=== PATIENT | female | born 1940 | race Caucasian/White ===

== ENCOUNTER 2016-12-28 08:13 | Outpatient (CLI) | payer MEDICARE, OTHER ==
[2016-12-28 14:24] LABS: BASOPHILS % (AUTO) 0.6 %; EOSINOPHILS # (AUTO) 0.3 10^3/uL (0.0-0.7); EOSINOPHILS % (AUTO) 5.2 %; HCT - HEMATOCRIT 42.6 % (37.0-47.0); HGB - HEMOGLOBIN 14.6 g/dL (12.0-16.0); LYMPHOCYTES # (AUTO) 1.4 10^3/uL (1.5-3.5); LYMPHOCYTES % (AUTO) 24.7 %; MEAN CORPUSCULAR HEMOGLOBIN 33.8 pg (27.0-31.0); MEAN CORPUSCULAR HGB CONC 34.2 g/dL (32.0-36.0); MEAN PLATELET VOLUME 7.9 fL (7.9-10.8); MONOCYTES # (AUTO) 0.5 10^3/uL (0.0-1.0); MONOCYTES % (AUTO) 8.8 %; NEUTROPHILS # (AUTO) 3.4 10^3/uL (1.5-6.6); NEUTROPHILS % (AUTO) 60.7 %; NUCLEATED RED BLOOD CELLS AUTO 0.1 /100WBC; RED CELL DISTRIBUTION WIDTH 13.4 % (12.0-15.0); UNCORRECTED WHITE BLOOD COUNT 5.6 x10^3/uL; WHITE BLOOD COUNT 5.6 x10^3/uL (4.8-10.8)
[2016-12-28 14:41] LABS: ALBUMIN/GLOBULIN RATIO 1.3 (1.0-2.2); BUN - BLOOD UREA NITROGEN 11 mg/dL (6-20); CALCIUM 9.6 mg/dL (8.5-10.3); CARBON DIOXIDE - CO2 23 mmol/L (21-32); CHLORIDE 105 mmol/L (101-111); CHOL/HDL RATIO 3.3 (<4.4); CHOLESTEROL 263 mg/dL; GFR - MDRD 54 (>89); GLUCOSE 100 mg/dL (70-100); HDL CHOLESTEROL 80 mg/dL; POTASSIUM 4.1 mmol/L (3.5-5.0); SODIUM 137 mmol/L (135-145); TOTAL PROTEIN 7.2 g/dL (6.7-8.2); TRIGLYCERIDES 110 mg/dL; VLDL CHOLESTEROL 22 mg/dL
== END 2016-12-28 08:14 | disposition home or self-care (01) ==
LOC: LAB.R 08:13
PROVIDERS: ATTEND Internal Medicine
DX: E03.9 Hypothyroidism, unspecified (principal); I10 Essential (primary) hypertension; E78.5 Hyperlipidemia, unspecified
CPT/HCPCS: 80053; 80061; 84443; 85025

== ENCOUNTER 2017-01-09 10:27 | Outpatient (CLI) | payer MEDICARE, OTHER ==
--- NOTE | 2017-01-10 17:41 | Mammography Report ---
DIGITAL SCREENING MAMMOGRAM: 01/09/2017 CLINICAL INDICATION: A 76-year-old with family history of breast cancer, history of benign biopsy fo r screening. COMPARISON: 01/2015, 05/2013, 09/2011, 05/2010, 04/2009, 04/2008, 03/2007. TECHNIQUE: Routine CC and MLO projections were obtained of the breasts. The breasts demonstrate heterogeneously dense fibroglandular parenchyma bilaterally. Coarse and punc peña, typically benign calcifications are present. No suspicious masses, clustered microcalcificatio ns, or regions of architectural distortion are identified. IMPRESSION: BENIGN FINDINGS. RECOMMENDATION: ROUTINE ANNUAL SCREENING UNLESS OTHERWISE CLINICALLY INDICATED. BIRADS CATEGORY: 2, BENIGN FINDINGS. STANDARD QUALIFYING STATEMENTS 1. This examination was reviewed with the aid of Computed-Aided Detection (CAD). 2. A negative or benign imaging report should not delay biopsy if clinically suspicious findings are present. Consider surgical consultation if warranted. More than 5% of cancers are not identified b y imaging. 3. Dense breasts may obscure an underlying neoplasm. JOB #: [id number] EXT JOB #:[id number]
== END 2017-01-09 10:28 | disposition home or self-care (01) ==
LOC: DI 10:27
PROVIDERS: ATTEND Internal Medicine
DX: Z12.31 Encounter for screening mammogram for malignant neoplasm of breast (principal)
CPT/HCPCS: 77067

== ENCOUNTER 2018-01-22 08:08 | Outpatient (CLI) | payer MEDICARE, OTHER ==
[2018-01-22 13:01] LABS: BASOPHILS % (AUTO) 0.6 %; EOSINOPHILS # (AUTO) 0.2 10^3/uL (0.0-0.7); EOSINOPHILS % (AUTO) 4.2 %; HGB - HEMOGLOBIN 14.7 g/dL (12.0-16.0); LYMPHOCYTES # (AUTO) 1.1 10^3/uL (1.5-3.5); LYMPHOCYTES % (AUTO) 21.3 %; MEAN CORPUSCULAR HEMOGLOBIN 34.3 pg (27.0-31.0); MEAN CORPUSCULAR HGB CONC 34.6 g/dL (32.0-36.0); MEAN CORPUSCULAR VOLUME 99.2 fL (81.0-99.0); MEAN PLATELET VOLUME 8.1 fL (7.9-10.8); MONOCYTES # (AUTO) 0.5 10^3/uL (0.0-1.0); MONOCYTES % (AUTO) 10.1 %; NEUTROPHILS # (AUTO) 3.4 10^3/uL (1.5-6.6); NEUTROPHILS % (AUTO) 63.8 %; PLT - PLATELET COUNT 231 10^3/uL (130-450); RED CELL DISTRIBUTION WIDTH 13.2 % (12.0-15.0); WHITE BLOOD COUNT 5.3 x10^3/uL (4.8-10.8)
[2018-01-22 13:17] LABS: ALBUMIN 3.9 g/dL (3.2-5.5); ALBUMIN/GLOBULIN RATIO 1.4 (1.0-2.2); ALKALINE PHOSPHATASE 50 IU/L (42-121); ALT ALANINE AMINOTRANSFERASE 24 IU/L (10-60); AST ASPARTATE AMINOTRANSFERASE 23 IU/L (10-42); BUN - BLOOD UREA NITROGEN 15 mg/dL (6-20); CHOL/HDL RATIO 3.6 (<4.4); CHOLESTEROL 261 mg/dL; GFR - MDRD 53 (>89); HDL CHOLESTEROL 73 mg/dL; LDL CHOLESTEROL,CALCULATED 163 mg/dL; LDL/HDL RATIO 2.2 (<4.4); TOTAL PROTEIN 6.6 g/dL (6.7-8.2); VLDL CHOLESTEROL 25 mg/dL
[2018-01-22 13:23] LABS: CALCIUM 9.6 mg/dL (8.5-10.3); CARBON DIOXIDE - CO2 22 mmol/L (21-32); CHLORIDE 104 mmol/L (101-111); GLUCOSE 106 mg/dL (70-100); SODIUM 136 mmol/L (135-145)
== END 2018-01-22 08:09 | disposition home or self-care (01) ==
LOC: LAB.R 08:08
PROVIDERS: ATTEND Internal Medicine
DX: E03.9 Hypothyroidism, unspecified (principal); R00.2 Palpitations; E78.5 Hyperlipidemia, unspecified; I10 Essential (primary) hypertension; Z79.899 Other long term (current) drug therapy
CPT/HCPCS: 80053; 80061; 83721; 84443; 85025

== ENCOUNTER → 2018-04-02 | Outpatient (CLI) | payer MEDICARE, OTHER ==
[2018-04-02 15:32] LABS: ALT ALANINE AMINOTRANSFERASE 23 IU/L (10-60); AST ASPARTATE AMINOTRANSFERASE 23 IU/L (10-42); LDL CHOLESTEROL,DIRECT 92 mg/dL
== END ==
LOC: LAB.R 08:03
PROVIDERS: ATTEND Internal Medicine
DX: E78.5 Hyperlipidemia, unspecified (principal)
CPT/HCPCS: 83721; 84450; 84460

== ENCOUNTER 2019-02-03 08:15 | Outpatient (CLI) | payer MEDICARE, OTHER ==
[2019-02-03 08:59] LABS: BASOPHILS % (AUTO) 0.4 %; EOSINOPHILS # (AUTO) 0.3 10^3/uL (0.0-0.7); EOSINOPHILS % (AUTO) 4.5 %; HGB - HEMOGLOBIN 14.5 g/dL (12.0-16.0); LYMPHOCYTES # (AUTO) 1.3 10^3/uL (1.5-3.5); LYMPHOCYTES % (AUTO) 22.8 %; MEAN PLATELET VOLUME 9.5 fL (7.9-10.8); MONOCYTES # (AUTO) 0.5 10^3/uL (0.0-1.0); MONOCYTES % (AUTO) 8.7 %; NEUTROPHILS # (AUTO) 3.6 10^3/uL (1.5-6.6); NEUTROPHILS % (AUTO) 63.2 %; PLT - PLATELET COUNT 240 10^3/uL (130-450); RED BLOOD COUNT 4.39 10^6/uL (4.20-5.40); RED CELL DISTRIBUTION WIDTH 13.4 % (12.0-15.0); WHITE BLOOD COUNT 5.6 x10^3/uL (4.8-10.8)
[2019-02-03 09:22] LABS: ALBUMIN 3.6 g/dL (3.2-5.5); ALBUMIN/GLOBULIN RATIO 1.1 (1.0-2.2); ALKALINE PHOSPHATASE 44 IU/L (42-121); ALT ALANINE AMINOTRANSFERASE 19 IU/L (10-60); AST ASPARTATE AMINOTRANSFERASE 20 IU/L (10-42); BILIRUBIN,TOTAL 0.8 mg/dL (0.2-1.0); BUN - BLOOD UREA NITROGEN 15 mg/dL (6-20); CALCIUM 9.2 mg/dL (8.5-10.3); CARBON DIOXIDE - CO2 25 mmol/L (21-32); CHLORIDE 104 mmol/L (101-111); CHOL/HDL RATIO 3.5 (<4.4); CHOLESTEROL 266 mg/dL; CREATININE 1.1 mg/dL (0.4-1.0); GFR - MDRD 48 (>89); GLUCOSE 103 mg/dL (70-100); HDL CHOLESTEROL 75 mg/dL; LDL CHOLESTEROL,CALCULATED 169 mg/dL; LDL/HDL RATIO 2.3 (<4.4); SODIUM 139 mmol/L (135-145); TOTAL PROTEIN 6.9 g/dL (6.7-8.2); VLDL CHOLESTEROL 22 mg/dL
[2019-02-03 09:43] LABS: THYROID STIMULATING HORMONE 3.54 uIU/mL (0.34-5.60)
[2019-02-03 09:45] LABS: FREE T4 (FREE THYROXINE) 0.82 ng/dL (0.58-1.64)
== END 2019-02-03 08:16 | disposition home or self-care (01) ==
LOC: LAB 08:15
PROVIDERS: ATTEND Family Medicine
DX: I49.8 Other specified cardiac arrhythmias (principal); E03.9 Hypothyroidism, unspecified; G43.109 Migraine with aura, not intractable, without status migrainosus; M19.90 Unspecified osteoarthritis, unspecified site; D12.6 Benign neoplasm of colon, unspecified
CPT/HCPCS: 36415; 80053; 80061; 83721; 84439; 84443; 84481; 85025

== ENCOUNTER 2019-03-02 13:14 | Outpatient (CLI) | payer MEDICARE, OTHER ==
--- NOTE | 2019-03-03 08:57 | Mammography Report ---
Reason: SCREENING MAMMO Procedure Date: 03/02/2019 Accession Number: [id number] / [id number] Procedure: HA - Screening Mammo w/Tavo CPT Code: FULL RESULT: EXAM: Screening Mammo w/Tavo DATE: 03/02/2019 2:10 PM CLINICAL HISTORY: Screening encounter. Family history of breast cancer in the mother at the age of 70 and a paternal grandmother at the age of 70. History of excisional left breast biopsy with benign pathology. TECHNIQUE: (B) - Bilateral CC and MLO views were obtained. COMPARISON: 01/09/2017 through 06/19/2013. PARENCHYMAL PATTERN: (D) - The breast(s) demonstrate(s) heterogeneously dense fibroglandular parenchyma. FINDINGS: There are typically benign coarse calcifications as well as typically benign vascular calcifications. Left breast postbiopsy changes are noted. There are no suspicious masses, calcifications, or areas of distortion. IMPRESSION: Benign findings. BI-RADS category 2. RECOMMENDATION: (ANNUAL) - Recommend routine annual screening mammography. BI-RADS CATEGORY: (2) - Benign Findings. STANDARD QUALIFYING STATEMENTS: 1. This examination was not reviewed with the aid of Computer-Aided Detection (CAD). 2. A negative or benign imaging report should not preclude biopsy if clinically suspicious findings are present. 3. Dense breasts may obscure an underlying neoplasm. 4. This examination was reviewed with the aid of 3D breast imaging (tomosynthesis).
== END 2019-03-02 13:15 | disposition home or self-care (01) ==
LOC: DI 13:14
DX: Z12.31 Encounter for screening mammogram for malignant neoplasm of breast (principal); Z80.3 Family history of malignant neoplasm of breast
CPT/HCPCS: 77063; 77067

== ENCOUNTER 2019-11-18 16:40 | Outpatient (CLI) | payer MEDICARE, OTHER ==
--- NOTE | 2019-11-18 18:01 | Ultrasound Report ---
PROCEDURE: Duplex Ext Veins Right INDICATIONS: R LEG PX TECHNIQUE: Real-time imaging, as well as color and pulse Doppler interrogation, were performed of the lower extr emity deep veins from the inguinal ligament to the popliteal fossa. COMPARISON: None. FINDINGS: The deep veins are normally compressible, and free of intraluminal thrombus. Color and pu lse Doppler demonstrate normal phasic intraluminal flow. There is normal augmentation response to di stal compression maneuver. Incidentally noted occlusive thrombus is present within a tortuous superficial varicosity. IMPRESSION: 1. No deep vein thrombosis of the right lower extremity. 2. Superficial thrombosis within a varicosity. Reviewed by: Fabiola Serna MD on 11/18/2019 5:59 PM PDT Approved by: Fabiola Serna MD on 11/18/2019 5:59 PM PDT Station ID: [id number]
== END 2019-11-18 16:41 | disposition home or self-care (01) ==
LOC: DI 16:40
PROVIDERS: ATTEND Nurse Practitioner
DX: I82.811 Embolism and thrombosis of superficial veins of right lower extremity (principal)

== ENCOUNTER 2019-11-25 19:55 | Emergency (ER) | payer MEDICARE, OTHER ==
--- NOTE | 2019-11-25 21:23 | ED Physician Documentation ---
History of Present Illness - Stated complaint Stated Complaint: TACHYCARDIA - Chief complaint Chief Complaint: Cardiac - History obtained from History obtained from: Patient - History of Present Illness Timing: Yesterday Pain level max: 0 Pain level now: 0 Improved by: valsalva maneuvers Worsened by: no exacerbating factors - Additonal information Additional information: patient has long-standing h/o tachycardia, episodic without any cause found despite extensive w/u over many years. She had minimized episodes with atenolol 25mg BID, but 2 days ago, her emissions inspector changed her from atenolol to Cartia XT 120mg QD with verapamil 80mg once PRN for episodes of tachycardia. She says this change was made because she started having episodes again (once in June and again in September). She switched the medications as directed yesterday and started having episodes yesterday which initially responded to valsalva maneuver although she also took a dose of the verapamil (the resolution of the episode seemed temporally related to the valsalva maneuver). She had episode tonight which has not stopped despite trying the verapamil and valsalva maneuvers. She only c/o rapid palpitations. Denies SOB, lightheadedness, chest pain/pressure, n/v, diaphoresis She had outpatient US 1 week ago which showed RLE superficial venous thrombosis in varicosity, PMD recommended starting 81mg ASA QD which patient has been taking Review of Systems Constitutional: denies: Fever, Chills, Sweats Cardiac: reports: Palpitations. denies: Chest pain / pressure, Pedal edema, Calf pain Respiratory: reports: Reviewed and negative GI: reports: Reviewed and negative. denies: Nausea, Vomiting Neurologic: denies: Generalized weakness PD PAST MEDICAL HISTORY - Past Medical History Past Medical History: Yes Cardiovascular: Arrhythmia Respiratory: None Endocrine/Autoimmune: HyPOthyroidism GI: GERD, Colon polyps YOUTH CARE PROFESSIONAL: None : Frequency HEENT: None, Glaucoma, Other Psych: Claustrophobia Musculoskeletal: Osteoarthritis Derm: Eczema, Psoriasis, Rosacea - Past Surgical History Past Surgical History: Yes General: Colonoscopy Ortho: Hip replacement, Knee replacement /YOUTH CARE PROFESSIONAL: LEEP (Cervical surgery) HEENT: Tonsil/Adenoidectomy - Present Medications Home Medications: Ambulatory Orders Medication Instructions Recorded Confirmed Levothyroxine [Synthroid] 50 mcg PO QDAC 01/30/13 02/22/16 Cholecalciferol (Vitamin D3) 2,000 unit PO DAILY 03/26/14 02/22/16 [Vitamin D] Magnesium 250 mg PO DAILY 03/26/14 02/22/16 Ubidecarenone [Co Q-10] 100 mg PO DAILY 03/26/14 02/22/16 Progesterone [First-Progesterone 1 mg PO DAILY 05/12/14 02/22/16 Vgs 100] raNITIdine HCl [Zantac] 1 mg PO DAILY 05/12/14 02/22/16 atenoloL [Atenolol] 1 tab PO BID 05/24/14 02/22/16 Calcium Carbonate [Tums (Calcium 500 mg PO DAILY 02/21/16 02/22/16 Carbonate 500mg)] Latanoprost 0.005% Ophth Drops 40 drops EACHEYE DAILY 02/21/16 02/21/16 [Xalatan Ophth Drops] - Allergies Allergies/Adverse Reactions: Allergies Allergy/AdvReac Type Severity Reaction Status Date / Time Tetracyclines Allergy Severe TINNITIS/PH Verified 11/25/19 19:59 OTOPHOBIA/M IGRAINES ADHESIVES AdvReac Intermediate Rash Uncoded 11/25/19 19:59 - Social History Does the pt smoke?: No Smoking Status: Never smoker Does the pt drink ETOH?: No Does the pt have substance abuse?: No - Immunizations Immunizations are current?: Yes - POLST Patient has POLST: No PD ED PE NORMAL - Vitals Vital signs reviewed: Yes - General General: Alert and oriented X 3, No acute distress, Well developed/nourished - Neck Neck: Supple, no meningeal sign, Thyroid normal - Cardiac Cardiac: No murmur, No gallop, No rub - Respiratory Respiratory: No respiratory distress, Clear bilaterally - Abdomen Abdomen: Soft, Non tender - Derm Derm: Normal color, Warm and dry - Extremities Extremities: No edema - Neuro Neuro: Alert and oriented X 3 PD ED PE EXPANDED - Cardiac Cardiac: Tachy, Regular Rhythm Results - Vitals Vitals: Vital Signs - 24 hr 11/25/19 11/25/19 11/25/19 19:59 20:02 21:45 Temperature 37.1 C Heart Rate 135 H 108 H 118 H Respiratory 22 14 13 Rate Blood Pressure 151/98 H 150/84 H 148/92 H O2 Saturation 97 98 97 0711/25/19 11/25/19 22:10 22:21 23:05 Temperature Heart Rate 107 H 97 101 H Respiratory 15 17 16 Rate Blood Pressure 154/87 H 145/86 H 140/91 H O2 Saturation 96 95 96 11/25/19 11/26/19 11/26/19 23:19 00:18 01:44 Temperature Heart Rate 97 75 94 Respiratory 18 18 18 Rate Blood Pressure 137/89 H 126/78 145/88 H O2 Saturation 95 96 100 11/26/19 02:08 Temperature Heart Rate 65 Respiratory 16 Rate Blood Pressure 141/73 H O2 Saturation 98 Oxygen O2 Source Room air - EKG (time done) No standard instances Rate: Rate (enter#) (118) Rhythm: Sinus tachycardia [place]: LAD, Anterior hemiblock Intervals: Normal CT QRS: Normal Ischemia: Normal ST segments - Labs Labs: Laboratory Tests 11/25/19 11/25/19 11/25/19 22:05 22:05 22:05 WBC 8.1 RBC 4.44 Hgb 14.6 Hct 43.9 MCV 98.9 MCH 32.9 H MCHC 33.3 RDW 13.4 Plt Count 236 MPV 9.2 Neut # (Auto) 6.5 Lymph # (Auto) 0.9 L Powell # (Auto) 0.5 Eos # (Auto) 0.1 Baso # (Auto) 0.0 Absolute Nucleated RBC 0.00 Nucleated RBC % 0.0 D-Dimer 767.6 H Sodium 138 Potassium 4.0 Chloride 100 L Carbon Dioxide 25 Anion Gap 13.0 BUN 19 Creatinine 1.1 H Estimated GFR (MDRD) 48 L Glucose 128 H Calcium 9.7 Magnesium 2.3 Total Bilirubin 0.6 AST 19 ALT 20 Alkaline Phosphatase 50 Troponin I High Sens Total Protein 7.4 Albumin 4.3 Globulin 3.1 Albumin/Globulin Ratio 1.4 Lipase 48 TSH 11/25/19 11/25/19 11/26/19 22:05 22:08 00:45 WBC RBC Hgb Hct MCV MCH MCHC RDW Plt Count MPV Neut # (Auto) Lymph # (Auto) Powell # (Auto) Eos # (Auto) Baso # (Auto) Absolute Nucleated RBC Nucleated RBC % D-Dimer Sodium Potassium Chloride Carbon Dioxide Anion Gap BUN Creatinine Estimated GFR (MDRD) Glucose Calcium Magnesium Total Bilirubin AST ALT Alkaline Phosphatase Troponin I High Sens 39.2 H* 51.0 H* Total Protein Albumin Globulin Albumin/Globulin Ratio Lipase TSH 3.64 - Rads (name of study) chest xray Radiology: Prelim report reviewed, See rad report thoracic CT angio (PE study) Radiology: Prelim report reviewed, See rad report PD MEDICAL DECISION MAKING - ED course Complexity details: reviewed results, re-evaluated patient, considered differential, d/w patient ED course: elevated d-dimer, but no evidence of PE on CT chest angio. mild elevation in hsTni with 10.8 delta on 2-hour repeat. I discussed these results with Dr. Velázquez (electrical & instrumentation supervisor cardiology for patient's emissions inspector (Dr. Benitez)); agrees patient is safe and appropriate for discharge home, given that her only symptom is palpitations, the rate has been controlled with 5mg lopressor given 3 doses, no evidence of ischemia on EKG, and small delta. Patient's heart rate was 60s-70s prior to d/c after third dose of lopressor IV 5mg. I also d/w Dr. Velázquez regarding medications; patient wants to stop the cartia and resume the atenolol, which Dr. Velázquez says is appropriate and I thus instructed patient to do so starting this morning. Departure - Departure Disposition: 01 Home, Self Care Clinical Impression: Palpitations, Sinus tachycardia Condition: Good Instructions: ED Palpitations, ED Tachycardia Pat PSVT Follow-Up: Nader Beckman MD [Primary Care Provider] - Discharge Date/Time: 11/26/19 02:24
[2019-11-25] MEDS ORDERED: METOPROLOL 5 MG/5 ML VIAL IVP STA ×2 (21:55→23:08)
[2019-11-25 22:12] LABS: BASOPHILS % (AUTO) 0.1 %; EOSINOPHILS # (AUTO) 0.1 10^3/uL (0.0-0.7); EOSINOPHILS % (AUTO) 1.2 %; HGB - HEMOGLOBIN 14.6 g/dL (12.0-16.0); LYMPHOCYTES # (AUTO) 0.9 10^3/uL (1.5-3.5); LYMPHOCYTES % (AUTO) 11.6 %; MEAN CORPUSCULAR HEMOGLOBIN 32.9 pg (27.0-31.0); MEAN CORPUSCULAR HGB CONC 33.3 g/dL (32.0-36.0); MEAN CORPUSCULAR VOLUME 98.9 fL (81.0-99.0); MEAN PLATELET VOLUME 9.2 fL (7.9-10.8); MONOCYTES # (AUTO) 0.5 10^3/uL (0.0-1.0); MONOCYTES % (AUTO) 6.6 %; NEUTROPHILS # (AUTO) 6.5 10^3/uL (1.5-6.6); NEUTROPHILS % (AUTO) 80.1 %; PLT - PLATELET COUNT 236 10^3/uL (130-450); RED BLOOD COUNT 4.44 10^6/uL (4.20-5.40); RED CELL DISTRIBUTION WIDTH 13.4 % (12.0-15.0); WHITE BLOOD COUNT 8.1 x10^3/uL (4.8-10.8)
[2019-11-25 22:27] LABS: ALBUMIN 4.3 g/dL (3.2-5.5); ALBUMIN/GLOBULIN RATIO 1.4 (1.0-2.2); BILIRUBIN,TOTAL 0.6 mg/dL (0.2-1.0); CALCIUM 9.7 mg/dL (8.5-10.3); CREATININE 1.1 mg/dL (0.4-1.0); MAGNESIUM 2.3 mg/dL (1.7-2.8); TOTAL PROTEIN 7.4 g/dL (6.7-8.2)
[2019-11-25] MEDS ORDERED: IOVERSOL 320 100 ML VIAL IVP ONE ×2 (23:25→23:52)
[2019-11-26] MEDS ORDERED: METOPROLOL 5 MG/5 ML VIAL IVP STA (01:40)
[2019-11-26 02:09] VITALS: BP 141/73
--- NOTE | 2019-11-26 08:12 | CT Report ---
PROCEDURE: ANGIO CHEST W/WO INDICATIONS: palpitations, elevated d-dimer CONTRAST: IV CONTRAST: Optiray 320 ml: 80 PO CONTRAST: *NO PO CONTRAST TECHNIQUE: After the administration of intravenous contrast, 2 mm thick sections acquired from the pulmonary api rocío to the posterior costophrenic angles. 3-dimensional maximum intensity projection (MIP) coronal a nd sagittal reformats were then acquired through the thorax. For radiation dose reduction, the follow ing was used: automated exposure control, adjustment of mA and/or kV according to patient size. COMPARISON: None. FINDINGS: Image quality: Excellent. Pulmonary arteries: Pulmonary arteries are normal in size, and demonstrate no intraluminal filling d efects to suggest central pulmonary embolism. Lungs and pleura: Lungs are clear. No pleural effusions or pneumothorax. Central and peripheral ai rways are patent. Mediastinum: Heart size is normal, without pericardial effusion. No mediastinal or hilar adenopathy . Thoracic aorta is normal in caliber and enhancement. Esophagus is normal in caliber. Small hiatal hernia. Bones and chest wall: No suspicious bony lesions. Degenerative changes in thoracic spine. Ribs and thoracic spine appear intact throughout. The thyroid is normal. No axillary or supraclavicular randolph opathy. Abdomen: Visualized upper abdominal solid organs appear normal in the early arterial phase of enhanc ement. IMPRESSION: 1. No evidence for pulmonary embolism. 2. Small hiatal hernia. No significant discrepancy with the preliminary report. Reviewed by: Kris Cameron MD on 11/26/2019 8:10 AM PDT Approved by: Kris Cameron MD on 11/26/2019 8:10 AM PDT Station ID: [id number]
== END 2019-11-26 02:24 | disposition home or self-care (01) ==
LOC: ED 19:55
DX: R00.2 Palpitations (principal); R00.0 Tachycardia, unspecified
CPT/HCPCS: 36415; 71275; 80053; 83690; 83735; 84443; 84484; 85025; 85379; 93005; 96374; 96376; 99284; Q9967

== ENCOUNTER 2020-01-14 20:08 | Emergency (ER) | payer MEDICARE, OTHER ==
--- NOTE | 2020-01-14 20:25 | ED Physician Documentation ---
History of Present Illness - Stated complaint Stated Complaint: RAPID HEART RATE/FAST PULSE - Chief complaint Chief Complaint: Cardiac - History obtained from History obtained from: Patient - Additonal information Additional information: Patient is an 79-year-old female with a history of tachycardia. Patient reports that she takes 25 mg of atenolol by mouth twice daily. And also has verapamil as needed whenever she has this rapid heartbeat. 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 She reports her symptoms have resolved by the time of my evaluation and is requesting to be discharged home. I did recommend lab work and cardiac work-up however she is states that she feels fine now and wants to go home. Review of Systems Constitutional: reports: Reviewed and negative Eyes: reports: Reviewed and negative Ears: reports: Reviewed and negative Nose: reports: Reviewed and negative Throat: reports: Reviewed and negative Cardiac: reports: Palpitations Respiratory: reports: Reviewed and negative GI: reports: Reviewed and negative : reports: Reviewed and negative Skin: reports: Reviewed and negative Musculoskeletal: reports: Reviewed and negative Neurologic: reports: Reviewed and negative Psychiatric: reports: Reviewed and negative Endocrine: reports: Reviewed and negative Immunocompromised: reports: Reviewed and negative PD PAST MEDICAL HISTORY - Past Medical History Cardiovascular: Arrhythmia Respiratory: None Endocrine/Autoimmune: HyPOthyroidism GI: GERD, Colon polyps CORE DRILLER: None : Frequency HEENT: None, Glaucoma, Other Psych: Claustrophobia Musculoskeletal: Osteoarthritis Derm: Eczema, Psoriasis, Rosacea - Past Surgical History Past Surgical History: Yes General: Colonoscopy Ortho: Hip replacement, Knee replacement /CORE DRILLER: LEEP (Cervical surgery) HEENT: Tonsil/Adenoidectomy - Present Medications Home Medications: Ambulatory Orders Medication Instructions Recorded Confirmed Levothyroxine [Synthroid] 50 mcg PO QDAC 01/30/13 02/22/16 Cholecalciferol (Vitamin D3) 2,000 unit PO DAILY 03/26/14 02/22/16 [Vitamin D] Magnesium 250 mg PO DAILY 03/26/14 02/22/16 Ubidecarenone [Co Q-10] 100 mg PO DAILY 03/26/14 02/22/16 Progesterone [First-Progesterone 1 mg PO DAILY 05/12/14 02/22/16 Vgs 100] raNITIdine HCl [Zantac] 1 mg PO DAILY 05/12/14 02/22/16 atenoloL [Atenolol] 1 tab PO BID 05/24/14 02/22/16 Calcium Carbonate [Tums (Calcium 500 mg PO DAILY 02/21/16 02/22/16 Carbonate 500mg)] Latanoprost 0.005% Ophth Drops 40 drops EACHEYE DAILY 02/21/16 02/21/16 [Xalatan Ophth Drops] - Allergies Allergies/Adverse Reactions: Allergies Allergy/AdvReac Type Severity Reaction Status Date / Time Tetracyclines Allergy Severe TINNITIS/PH Verified 01/14/20 20:11 OTOPHOBIA/M IGRAINES ADHESIVES AdvReac Intermediate Rash Uncoded 01/14/20 20:11 - Social History Does the pt smoke?: No Smoking Status: Never smoker Does the pt drink ETOH?: Yes Does the pt have substance abuse?: No - Immunizations Immunizations are current?: Yes - POLST Patient has POLST: No PD ED PE NORMAL - Vitals Vital signs reviewed: Yes - General General: Alert and oriented X 3, No acute distress - HEENT HEENT: PERRL - Neck Neck: Supple, no meningeal sign - Cardiac Cardiac: RRR, No murmur, No gallop, No rub, Strong equal pulses - Respiratory Respiratory: No respiratory distress, Clear bilaterally - Abdomen Abdomen: Normal bowel sounds, Soft, Non tender, Non distended - Derm Derm: Warm and dry - Extremities Extremities: No deformity - Neuro Neuro: Alert and oriented X 3 - Psych Psych: Normal mood, Normal affect Results - Vitals Vitals: Vital Signs - 24 hr 01/14/20 01/14/20 20:11 20:41 Temperature 36.5 C Heart Rate 102 H 70 Respiratory 20 18 Rate Blood Pressure 153/87 H 145/77 H O2 Saturation 96 97 Oxygen O2 Source Room air - EKG (time done) 20:20 Rate: Other (no stemi) PD MEDICAL DECISION MAKING - ED course Complexity details: reviewed old records, reviewed results, re-evaluated patient, considered differential (atrial fibrillation), d/w patient, d/w family ED course: Patient's EKG was reviewed and compared with previous EKG there is no obvious STEMI there or malignant arrhythmia. On reexamination her heart rates in the 70s and regular with blood pressure 140/70 the patient states that she feels better now and she wants to go home I did explain to her that I recommend additional testing however she does have medical decision-making capability capacity and will be discharged home. Departure - Departure Disposition: 01 Home, Self Care Clinical Impression: Palpitations Condition: Stable Instructions: ED Palpitations Follow-Up: Erika Soria ARNP, [employer] [Primary Care Provider] - Tomorrow Comments: Please follow-up with your primary care provider tomorrow and call your bank teller machine mechanic to schedule an appointment as well. Discharge Date/Time: 01/14/20 21:34
[2020-01-14 20:42] VITALS: BP 145/77
== END 2020-01-14 21:34 | disposition home or self-care (01) ==
LOC: ED 20:08
DX: R00.2 Palpitations (principal)
CPT/HCPCS: 93005; 99283; 99284

== ENCOUNTER 2020-02-23 13:56 | Outpatient (CLI) | payer MEDICARE, OTHER | END 2020-02-23 13:57 | disposition home or self-care (01) | LOC: COV 13:56 | PROVIDERS: ATTEND Student in an Organized Health Care Education/Training Program | DX: I47.1 Supraventricular tachycardia (principal); Z20.828 Contact with and (suspected) exposure to other viral communicable diseases ==

== ENCOUNTER 2020-04-04 14:38 | Outpatient (CLI) | payer MEDICARE, OTHER ==
--- NOTE | 2020-04-04 15:39 | Ultrasound Report ---
PROCEDURE: Pelvic w/Transvaginal INDICATIONS: POSTMENOPAUSAL BLEEDING TECHNIQUE: Real-time scanning was performed of the pelvic organs, with image documentation. Additional endovagi nal scanning was necessary due to incomplete visualization of the adnexal and endometrial structures by transabdominal scanning. COMPARISON: None. FINDINGS: Transabdominal scanning: Limited scanning through the kidneys shows no hydronephrosis. No pathologi c free abdominal or pelvic fluid. Endovaginal scanning: Uterus: Uterus is normal in size at 6 x 4 x 3.5 x 5.0 cm. The endometrium measures 1.0 mm in combin ed thickness. Small cystic appearing focus is noted measuring 5 x 4 x 6 mm. There is a mid anterior intramural focus of heterogeneous echogenicity measuring 21 x 17 x 20 mm compared to 25 x 21 x 23 mm. Nabothian cysts are noted. Ovaries: The ovaries are not visualized. Adnexal regions are unremarkable. IMPRESSION: Uterine fibroid appearing minimally decrease in size compared to prior exam. Endometrial cystic focus is noted. Reviewed by: Catarina Paulino MD on 04/04/2020 3:38 PM PST Approved by: Catarina Paulino MD on 04/04/2020 3:38 PM PST Station ID: [id number]
== END 2020-04-04 14:39 | disposition home or self-care (01) ==
LOC: DI 14:38
PROVIDERS: ATTEND Obstetrics & Gynecology
DX: D25.1 Intramural leiomyoma of uterus (principal); R93.89 Abnormal findings on diagnostic imaging of other specified body structures
CPT/HCPCS: 76830; 76856

== ENCOUNTER 2020-04-21 07:42 | Outpatient (CLI) | payer MEDICARE, OTHER ==
[2020-04-21 08:07] LABS: ALBUMIN 3.7 g/dL (3.2-5.5); ALBUMIN/GLOBULIN RATIO 1.2 (1.0-2.2); ALKALINE PHOSPHATASE 53 IU/L (42-121); ALT ALANINE AMINOTRANSFERASE 18 IU/L (10-60); AST ASPARTATE AMINOTRANSFERASE 18 IU/L (10-42); BILIRUBIN,TOTAL 0.9 mg/dL (0.2-1.0); BUN - BLOOD UREA NITROGEN 15 mg/dL (6-20); CALCIUM 9.4 mg/dL (8.5-10.3); CARBON DIOXIDE - CO2 23 mmol/L (21-32); CHLORIDE 103 mmol/L (101-111); CHOL/HDL RATIO 3.2 (<4.4); CHOLESTEROL 258 mg/dL; GLUCOSE 105 mg/dL (70-100); HDL CHOLESTEROL 81 mg/dL; LDL CHOLESTEROL,CALCULATED 156 mg/dL; LDL/HDL RATIO 1.9 (<4.4); SODIUM 137 mmol/L (135-145); TOTAL PROTEIN 6.9 g/dL (6.7-8.2); VLDL CHOLESTEROL 21 mg/dL
[2020-04-21 08:23] LABS: BASOPHILS % (AUTO) 0.4 %; EOSINOPHILS # (AUTO) 0.2 10^3/uL (0.0-0.7); EOSINOPHILS % (AUTO) 3.8 %; HGB - HEMOGLOBIN 14.8 g/dL (12.0-16.0); LYMPHOCYTES # (AUTO) 1.4 10^3/uL (1.5-3.5); LYMPHOCYTES % (AUTO) 26.1 %; MEAN CORPUSCULAR HEMOGLOBIN 33.3 pg (27.0-31.0); MEAN CORPUSCULAR HGB CONC 32.7 g/dL (32.0-36.0); MEAN CORPUSCULAR VOLUME 101.8 fL (81.0-99.0); MEAN PLATELET VOLUME 9.5 fL (7.9-10.8); MONOCYTES # (AUTO) 0.5 10^3/uL (0.0-1.0); MONOCYTES % (AUTO) 9.6 %; NEUTROPHILS # (AUTO) 3.3 10^3/uL (1.5-6.6); NEUTROPHILS % (AUTO) 59.7 %; PLT - PLATELET COUNT 256 10^3/uL (130-450); RED BLOOD COUNT 4.44 10^6/uL (4.20-5.40); RED CELL DISTRIBUTION WIDTH 13.1 % (12.0-15.0); WHITE BLOOD COUNT 5.5 x10^3/uL (4.8-10.8)
== END 2020-04-21 07:43 | disposition home or self-care (01) ==
LOC: DI 07:42
PROVIDERS: ATTEND Nurse Practitioner Family
DX: I51.7 Cardiomegaly (principal); I49.8 Other specified cardiac arrhythmias; E03.9 Hypothyroidism, unspecified; R00.2 Palpitations; E78.5 Hyperlipidemia, unspecified; I11.9 Hypertensive heart disease without heart failure; Z96.659 Presence of unspecified artificial knee joint
CPT/HCPCS: 36415; 80053; 80061; 83721; 84443; 85025; 93306

== ENCOUNTER 2020-04-29 13:54 | Outpatient (CLI) | payer MEDICARE, OTHER | END 2020-04-29 13:55 | disposition home or self-care (01) | LOC: COV 13:54 | PROVIDERS: ATTEND Obstetrics & Gynecology | DX: Z01.812 Encounter for preprocedural laboratory examination (principal); N95.0 Postmenopausal bleeding; Z20.828 Contact with and (suspected) exposure to other viral communicable diseases ==

== ENCOUNTER 2020-05-12 10:51 | Outpatient (CLI) | payer MEDICARE, OTHER ==
--- NOTE | 2020-05-12 14:38 | CARDIAC PROCEDURE NOTE ---
DATE OF SERVICE: 05/12/2020 Physician: Mala Shafer MD, [facility] INDICATION: Paroxysmal supraventricular tachycardia (PSVT). CARDIAC RISK FACTORS 1. Advanced age. 2. Hypertension, 3. Family history of heart disease. 4. Elevated cholesterol. PROCEDURE: After signing informed consent, the patient underwent a modified Chapin-protocol treadmill stress test. No cardiac imaging was ordered with this test. RESTING HEART RATE: 67. PEAK HEART RATE: 117 (84% predicted maximum heart rate for age). The patient took her usual Atenolol last night, but skipped the morning Atenolol dose. RESTING BLOOD PRESSURE: 166/88. PEAK BLOOD PRESSURE: 211/96. The patient exercised for 6 minutes and 31 seconds on a modified Chapin-protocol treadmill stress test. The patient achieved a peak heart rate of 117 (84% predicted maximum heart rate for age) and 3.5 METS. The patient had moderate shortness of breath at peak, and rated her perceived exertion at 16/20 on the Enma scale. There was no chest pain. The patient had low back pain and bilateral hip pain throughout exercise. RESTING EKG: Normal sinus rhythm, short [place] Interval, RSR' in V1 and V2. EKG AT PEAK: No new ST segment or T-wave changes. There were rare PACs and PVCs during exercise, no episodes of PSVT. SUMMARY 1. Abnormal resting EKG. 2. No episodes of paroxysmal supraventricular tachycardia occurred. 3. Poor exercise tolerance. 4. No ischemic changes occurred by EKG criteria. 5. No cardiac imaging was ordered with this examination. IMPRESSION: Normal stress test, for coronary ischemia. cc: THEO Fowler Dr[address] Cardiology TD: 05/12/2020 12:45 MTDD
== END 2020-05-12 10:52 | disposition home or self-care (01) ==
LOC: DI 10:51
PROVIDERS: ATTEND Nurse Practitioner Family
DX: I25.9 Chronic ischemic heart disease, unspecified (principal); I10 Essential (primary) hypertension; E78.00 Pure hypercholesterolemia, unspecified; Z82.49 Family history of ischemic heart disease and other diseases of the circulatory system

== ENCOUNTER 2020-06-03 19:52 | Outpatient (CLI) | payer MEDICARE, OTHER | END 2020-06-03 19:53 | disposition home or self-care (01) | LOC: COV 19:52 | PROVIDERS: ATTEND Obstetrics & Gynecology | DX: Z01.812 Encounter for preprocedural laboratory examination (principal); Z20.822 Contact with and (suspected) exposure to COVID-19; N95.0 Postmenopausal bleeding ==

== ENCOUNTER 2020-06-08 09:56 | Day surgery (SDC) | payer MEDICARE, OTHER ==
[2020-06-08] MEDS ORDERED: LACTATED RINGERS 1,000 ML IV ONE ×2 (10:12→14:12)
[2020-06-08] MEDS ORDERED: ACETAMINOPHEN 1,000 MG/100 ML 100 ML IV ONE (10:14)
[2020-06-08] MEDS ORDERED: GABAPENTIN 400 MG CAPSULE ONE (10:14)
[2020-06-08] MEDS ORDERED: CELECOXIB 100 MG CAPSULE PO ONE (10:14)
[2020-06-08 10:55] LABS: BASOPHILS % (AUTO) 0.2 %; EOSINOPHILS # (AUTO) 0.2 10^3/uL (0.0-0.7); EOSINOPHILS % (AUTO) 2.5 %; HGB - HEMOGLOBIN 14.6 g/dL (12.0-16.0); LYMPHOCYTES # (AUTO) 1.2 10^3/uL (1.5-3.5); LYMPHOCYTES % (AUTO) 18.5 %; MEAN CORPUSCULAR HEMOGLOBIN 33.8 pg (27.0-31.0); MEAN CORPUSCULAR HGB CONC 33.5 g/dL (32.0-36.0); MEAN CORPUSCULAR VOLUME 100.9 fL (81.0-99.0); MEAN PLATELET VOLUME 9.4 fL (7.9-10.8); MONOCYTES # (AUTO) 0.5 10^3/uL (0.0-1.0); NEUTROPHILS # (AUTO) 4.6 10^3/uL (1.5-6.6); NEUTROPHILS % (AUTO) 70.6 %; PLT - PLATELET COUNT 234 10^3/uL (130-450); RED BLOOD COUNT 4.32 10^6/uL (4.20-5.40); RED CELL DISTRIBUTION WIDTH 13.1 % (12.0-15.0); WHITE BLOOD COUNT 6.5 x10^3/uL (4.8-10.8)
[2020-06-08] MEDS ORDERED: ePHEDrine 50 MG/ML VIAL IVP PRN (11:23)
[2020-06-08] MEDS ORDERED: ONDANSETRON 4 MG/2 ML VIAL IVP PRN (11:23)
[2020-06-08] MEDS ORDERED: MORPHINE 2 MG/ML CARPUJECT IVP PRN (11:23)
[2020-06-08] MEDS ORDERED: ATROPINE ABBOJECT 1 MG/10 ML SYRINGE IVP PRN (11:23)
[2020-06-08] MEDS ORDERED: NALOXONE 0.4 MG/ML VIAL IVP PRN (11:23)
[2020-06-08] MEDS ORDERED: HYDROmorphone 0.5 MG/0.5 ML SYRINGE IVP PRN (11:23)
[2020-06-08] MEDS ORDERED: METOCLOPRAMIDE 10 MG/2 ML VIAL IVP PRN (11:23)
[2020-06-08] MEDS ORDERED: fentaNYL 100 MCG/2 ML VIAL IVP PRN (11:23)
--- NOTE | 2020-06-08 11:23 | ANESTHESIA ---
Pre-Anesthesia VS, & Labs - Diagnosis post menopausal bleeding - Procedure Myosure Hysteroscopy, D&C Vital Signs: Temp Pulse Resp BP Pulse Ox 37.2 C 65 12 142/72 H 99 06/08/20 10:12 06/08/20 10:12 06/08/20 10:12 06/08/20 10:12 06/08/20 10:12 Height: 5 ft 5 in Weight (kg): 77.2 kg Body Mass Index: 28.3 BMI Classification: Overweight - NPO >8 hours - Is Patient ?: No - Lab Results Current Lab Results: Laboratory Tests 06/08/20 10:00: WBC 6.5, RBC 4.32, Hgb 14.6, Hct 43.6, MCV 100.9 H, MCH 33.8 H, MCHC 33.5, RDW 13.1, Plt Count 234, MPV 9.4, Neut # (Auto) 4.6, Lymph # (Auto) 1.2 L, [place] # (Auto) 0.5, Eos # (Auto) 0.2, Baso # (Auto) 0.0, Absolute Nucleated RBC 0.00, Nucleated RBC % 0.0 Lab results reviewed: Yes Fish Bones: 06/08/20 10:00 Home Medications and Allergies Levothyroxine [Synthroid] 50 mcg PO QDAC 01/30/13 Cholecalciferol (Vitamin D3) [Vitamin D] 4,000 unit PO DAILY 03/26/14 Magnesium 400 mg PO DAILY 03/26/14 Ubidecarenone [Co Q-10] 100 mg PO DAILY 03/26/14 atenoloL [Atenolol] 25 mg PO BID 05/24/14 Latanoprost 0.005% Ophth Drops [Xalatan Ophth Drops] 40 drops EACHEYE QPM 02/21/16 Aspirin [Aspirin EC] 81 mg PO DAILY 04/28/20 Verapamil [Calan] 80 mg PO PRN PRN 04/28/20 Allergies/Adverse Reactions: Allergies Allergy/AdvReac Type Severity Reaction Status Date / Time Tetracyclines Allergy Severe TINNITIS/PH Verified 01/14/20 20:11 OTOPHOBIA/M IGRAINES ADHESIVES AdvReac Intermediate Rash Uncoded 01/14/20 20:11 Anes History & Medical History - Anesthetic History Anesthesia Complications: reports: No previous complications Family history of Anesthesia Complications: Denies Family history of Malignant Hyperthermia: Denies - Medical History Cardiovascular: reports: Deep vein thrombosis, Arrhythmia (SVT) Pulmonary: reports: None Gastrointestinal: reports: GERD, Hiatal hernia, Colon polyps Urinary: reports: Incontinence, Frequency Musculoskeletal: reports: Osteoarthritis Endocrine/Autoimmune: reports: HyPOthyroidism Blood Disorders: reports: None Skin: reports: Eczema, Psoriasis, Rosacea Smoking Status: Never smoker - Surgical History General: Colonoscopy Eyes Ears Nose Throat (EENT): Tonsil/Adenoidectomy Cardiothoracic: Other Gynecologic: LEEP (Cervical surgery), Other Orthopedic: Hip replacement, Knee replacement Exam General: Alert, Oriented x3, Cooperative, No acute distress Dental: WNL Mouth Openin Fingerbreadth Neck Mobility: Normal Mallampati classification: II Respiratory: Lungs clear, Normal breath sounds, No respiratory distress, No accessory muscle use Cardiovascular: Regular rate, Normal S1, Normal S2, No murmurs Plan Anesthesia Type: General, MAC Consent for Procedure(s) Verified and Reviewed: Yes Code Status: Attempt Resuscitation ASA classification: 2-Mild systemic disease Is this case an emergency?: No
[2020-06-08] MEDS ORDERED: LACTATED RINGERS 1,000 ML IV SCH (12:00)
[2020-06-08] MEDS ORDERED: BUPIVACAINE 0.25% PF 30 ML VIAL SUBQ ONE ×2 (13:47)
[2020-06-08] MEDS ORDERED: LIDOCAINE 2%-EPI 1:100000 20 ML MDV SUBQ ONE ×2 (13:47)
[2020-06-08] MEDS ORDERED: VASOPRESSIN 20 UNIT/ML VIAL ONE (13:51)
[2020-06-08 14:21] VITALS: BP 130/75
[2020-06-08] MEDS ORDERED: oxyCODONE 5 MG TABLET PO PRN (14:24)
--- NOTE | 2020-06-08 14:28 | OPERATIVE REPORT ---
Operative Report - General Procedure Date: 06/08/20 Planned Procedure: Hysteroscopy D&C with possible polypectomy Pre-Op Diagnosis: Postmenopausal bleeding Procedure Performed: Hysteroscopy D&C and polypectomy Post Op Diagnosis: Same - Procedure Note Primary Surgeon: Jennifer Gonzales MD Anesthesia Provider: Petros Mendez CRNA Anesthesia Technique: Local, MAC Pathology: uterine contents IV Fluids (mL): 600 Estimated Blood Loss (mL): 5 Urine Output (mL): 0 (voided prior to procedure) Indications: Patient is an 79 yo female with postmenopausal bleeding and cystic endometrial thickening on pelvic us here for hysteroscopy D&C. Findings: Uterine cavity with yellow implants across endometrial surface. and 2 small polyps. Complications: None - Other Other Information/Narrative: Risks benefits and alternatives to the procedure were reviewed. Consent was again confirmed. Patient was taken to the operating room where she underwent general anesthesia. She was positioned in dorsolithotomy position with legs resting in yellowfin stirrups. She was prepped and draped in the usual sterile fashion. Preoperative antibiotics were not indicated. Preoperative checklist was performed. Exam under anesthesia was performed. Speculum was placed in the vagina and the cervix was visualized. Single-tooth tenaculum was placed at the anterior cervical lip. Paracervical block was administered using a total of 20 cc of 2% lidocaine with epinephrine mixed with 0.25% bupivicaine was injected at the 4:00 and 8:00 positions lateral to the portio of the cervix. The cervical os was serially dilated with Hegar dilators to accommodate the caliber of the diagnostic hysteroscope. The hysteroscope was inserted and findings were noted as above. The hysteroscopic morcellator was inserted through the operative port. The intrauterine polyps were morcellated under direct visualization and curettage was performed under direct visualization. Uterine cavity was smooth at close of the procedure. Hysteroscope was removed. All instruments were removed from the uterus. Tenaculum was removed. Tenaculum sites were noted to be hemostatic. All instruments were removed from the vagina. Procedure was well-tolerated without complication. Fluid deficit:400 cc
--- NOTE | 2020-06-08 16:28 | ANESTHESIA POST OP EVALUATION ---
Anesthesia Post Eval - Post Anesthesia Eval Vitals: Last Vital Signs Temp 36.8 C 06/08/20 14:08 Pulse 59 L 06/08/20 14:20 Resp 19 06/08/20 14:20 BP 130/75 06/08/20 14:20 Pulse Ox 99 06/08/20 14:20 CV Function Including HR & BP: positive: Stable Pain Control: positive: Satisfactory Nausea & Vomiting: positive: Negative Mental Status: positive: Baseline Respiratory Status: Airway Patent Hydration Status: Satisfactory Anesthesia Complications: positive: None
== END 2020-06-08 09:57 | disposition home or self-care (01) ==
LOC: SDS 09:56
PROVIDERS: ATTEND Obstetrics & Gynecology
PROC: 0UDB8ZZ Extraction of Endometrium, Via Natural or Artificial Opening Endoscopic (ICD-10-PCS; 2020-06-08)
PROC: 0UB98ZZ Excision of Uterus, Via Natural or Artificial Opening Endoscopic (ICD-10-PCS; principal; 2020-06-08 13:00)
DX: N95.0 Postmenopausal bleeding (principal); N84.0 Polyp of corpus uteri; I10 Essential (primary) hypertension; Z87.891 Personal history of nicotine dependence; Z86.718 Personal history of other venous thrombosis and embolism
CPT/HCPCS: 36415; 58558; 85025; A9270; J0131; J7120

== ENCOUNTER 2020-08-17 19:52 | Emergency (ER) | payer MEDICARE, OTHER ==
[2020-08-17 20:20] LABS: BASOPHILS % (AUTO) 0.4 %; EOSINOPHILS # (AUTO) 0.4 10^3/uL (0.0-0.7); EOSINOPHILS % (AUTO) 5.8 %; HCT - HEMATOCRIT 41.7 % (37.0-47.0); HGB - HEMOGLOBIN 14.1 g/dL (12.0-16.0); LYMPHOCYTES # (AUTO) 1.7 10^3/uL (1.5-3.5); LYMPHOCYTES % (AUTO) 23.1 %; MEAN CORPUSCULAR HEMOGLOBIN 33.7 pg (27.0-31.0); MEAN CORPUSCULAR HGB CONC 33.8 g/dL (32.0-36.0); MEAN CORPUSCULAR VOLUME 99.8 fL (81.0-99.0); MONOCYTES # (AUTO) 0.6 10^3/uL (0.0-1.0); MONOCYTES % (AUTO) 7.7 %; NEUTROPHILS # (AUTO) 4.5 10^3/uL (1.5-6.6); NEUTROPHILS % (AUTO) 62.7 %; PLT - PLATELET COUNT 265 10^3/uL (130-450); RED BLOOD COUNT 4.18 10^6/uL (4.20-5.40); RED CELL DISTRIBUTION WIDTH 12.9 % (12.0-15.0); WHITE BLOOD COUNT 7.1 x10^3/uL (4.8-10.8)
--- NOTE | 2020-08-17 20:20 | ED Physician Documentation ---
PD HPI CHEST PAIN - Stated complaint Stated Complaint: FAST HR - Chief complaint Chief Complaint: Cardiac - History obtained from History obtained from: Patient - History of Present Illness Timing - onset: How many days ago (1-2) Timing - onset during: Rest, Light activity Timing - details: Gradual onset (She noticed her heart rate being faster than ba seline some yesterday and today. Previously had been 60s with blood pressure 130-140 on a atenolol. The last 2 days on sotalol heart rate is 80-90 and blood pressure 150-160 systolic), Waxing and waning Quality: Other (She noticed a feeling of her heart rate going slightly fast she has a history of SVT but has not had any of those episodes or symptoms. Mainly noticing her heart rate going 80-90 and blood pressure being elevated above normal. Recent change in meds.). No: Pressure, Tightness Location: Substernal Improved by: Rest Associated symptoms: Palpitations. No: Shortness of air, Nausea, General Weakness, Cough Similar symptoms before: Has not had sx before Recently seen: Clinic (Patient recently had a video appointment with Dr. Benitez your telephone switchboard operator and was switched from atenolol 50 mg twice daily to sotalol 80 mg twice daily for better control of her SVT episodes. Last Atenolol 2 days ago; started Sotolol yesterday.) Review of Systems Constitutional: denies: Fever, Chills Nose: denies: Rhinorrhea / runny nose, Congestion Throat: denies: Sore throat Cardiac: reports: Palpitations (feeling heart rate slightly faster with some skipping. No episodes of SVT though.). 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 ARTIST: None : Incontinence, Frequency HEENT: Glaucoma, Other Psych: Claustrophobia Musculoskeletal: Osteoarthritis Derm: Eczema, Psoriasis, Rosacea - Past Surgical History Past Surgical History: Yes General: Colonoscopy Ortho: Hip replacement, Knee replacement /ENTERTAINER OR VARIETY ARTIST: LEEP (Cervical surgery), Other Cardiovascular: Other HEENT: Tonsil/Adenoidectomy - Present Medications Home Medications: Ambulatory Orders Medication Instructions Recorded Confirmed Levothyroxine [Synthroid] 50 mcg PO QDAC 01/30/13 06/08/20 Cholecalciferol (Vitamin D3) 4,000 unit PO DAILY 03/26/14 06/08/20 [Vitamin D] Magnesium 400 mg PO DAILY 03/26/14 06/08/20 Ubidecarenone [Co Q-10] 100 mg PO DAILY 03/26/14 06/08/20 Latanoprost 0.005% Ophth Drops 40 drops EACHEYE QPM 02/21/16 06/08/20 [Xalatan Ophth Drops] Aspirin [Aspirin EC] 81 mg PO DAILY 04/28/20 06/08/20 Verapamil [Calan] 80 mg PO PRN PRN 04/28/20 06/02/20 oxyCODONE [Roxicodone] 5 mg PO Q4H PRN #10 tablet 06/08/20 Sotalol HCl [Betapace] 80 mg PO BID 08/17/20 08/17/20 - Allergies Allergies/Adverse Reactions: Allergies Allergy/AdvReac Type Severity Reaction Status Date / Time Tetracyclines Allergy Severe TINNITIS/PH Verified 08/17/20 20:07 OTOPHOBIA/M IGRAINES adhesive tape AdvReac Rash Verified 08/17/20 20:07 - Social History Does the pt smoke?: No Smoking Status: Never smoker Does the pt drink ETOH?: Yes Does the pt have substance abuse?: No - Immunizations Immunizations are current?: Yes - POLST Patient has POLST: No PD ED PE NORMAL - Vitals Vital signs reviewed: Yes - General General: Alert and oriented X 3, Well developed/nourished - HEENT HEENT: Pharynx benign - Neck Neck: Supple, no meningeal sign, No adenopathy - Cardiac Cardiac: RRR, No murmur - Respiratory Respiratory: Clear bilaterally - Abdomen Abdomen: Soft, Non tender - Derm Derm: Normal color, Warm and dry - Neuro Neuro: Alert and oriented X 3, No motor deficit, Normal speech, Other (somewhat anxious) Results - Vitals Vitals: Vital Signs - 24 hr 08/17/20 08/17/20 08/17/20 20:00 20:05 21:38 Temperature 36.3 C L Heart Rate 102 H 67 64 Respiratory 18 17 18 Rate Blood Pressure 157/99 H 127/95 H 146/78 H O2 Saturation 100 97 100 Oxygen O2 Source Room air - EKG (time done) 20:04 Rate: Rate (enter#) (95) Rhythm: NSR [place]: Normal Intervals: Normal HI QRS: Normal Ischemia: Normal ST segments. No: ST elevation c/w ischemia, ST depression - Labs Labs: Laboratory Tests 08/17/20 08/17/20 08/17/20 20:14 20:14 20:14 WBC 7.1 RBC 4.18 L Hgb 14.1 Hct 41.7 MCV 99.8 H MCH 33.7 H MCHC 33.8 RDW 12.9 Plt Count 265 MPV 9.0 Neut # (Auto) 4.5 Lymph # (Auto) 1.7 Cache # (Auto) 0.6 Eos # (Auto) 0.4 Baso # (Auto) 0.0 Absolute Nucleated RBC 0.00 Nucleated RBC % 0.0 Sodium 134 L Potassium 3.9 Chloride 100 L Carbon Dioxide 25 Anion Gap 9.0 BUN 15 Creatinine 0.9 Estimated GFR (MDRD) 60 L Glucose 102 H Calcium 9.7 Magnesium Total Bilirubin 0.4 AST 16 ALT 19 Alkaline Phosphatase 54 Troponin I High Sens 3.5 Total Protein 6.3 L Albumin 3.5 Globulin 2.8 Albumin/Globulin Ratio 1.3 Lipase 38 08/17/20 20:14 WBC RBC Hgb Hct MCV MCH MCHC RDW Plt Count MPV Neut # (Auto) Lymph # (Auto) Cache # (Auto) Eos # (Auto) Baso # (Auto) Absolute Nucleated RBC Nucleated RBC % Sodium Potassium Chloride Carbon Dioxide Anion Gap BUN Creatinine Estimated GFR (MDRD) Glucose Calcium Magnesium 2.1 Total Bilirubin AST ALT Alkaline Phosphatase Troponin I High Sens Total Protein Albumin Globulin Albumin/Globulin Ratio Lipase - Rads (name of study) chest xray Radiology: Prelim report reviewed (no acute process), See rad report PD MEDICAL DECISION MAKING - ED course Complexity details: reviewed results, considered differential (I talked with the on-call telephone switchboard operator who felt her symptoms are likely appropriate having switched from atenolol to sotalol with its less beta-1 activity. It will also take 4- 5 days to really have full effect. He would not change regimen or dose at this time.), d/w patient Departure - Departure Disposition: 01 Home, Self Care Clinical Impression: History of PSVT (paroxysmal supraventricular tachycardia), Elevated blood pressure reading Condition: Stable Record reviewed to determine appropriate education?: Yes Follow-Up: Nader Beckman MD [Primary Care Provider] - Luis Alberto Benitez MD [Physician No Access] - Comments: Continue your current medications. I talked with the on-call telephone switchboard operator who said the sotalol can take for 5 days to really he had its effectiveness. Therefore it is reasonable that your heart rate and blood pressure are slightly elevated having only been on it [address] Benitez's office over the next few days if still feeling uncomfortable about heart rate or BP. Have your EKG done outpatient as planned. Return if needed. Discharge Date/Time: 08/17/20 21:59
[2020-08-17 20:36] LABS: ALBUMIN 3.5 g/dL (3.2-5.5); ALBUMIN/GLOBULIN RATIO 1.3 (1.0-2.2); BILIRUBIN,TOTAL 0.4 mg/dL (0.2-1.0); CALCIUM 9.7 mg/dL (8.5-10.3); CREATININE 0.9 mg/dL (0.4-1.0); POTASSIUM 3.9 mmol/L (3.5-5.0); TOTAL PROTEIN 6.3 g/dL (6.7-8.2)
[2020-08-17] MEDS ORDERED: CALCIUM CARBONATE CHEW 500 MG TABLET PO STA (20:39)
--- NOTE | 2020-08-17 20:40 | XRAY Report ---
PROCEDURE: Chest 1 View X-Ray INDICATIONS: Chest pain TECHNIQUE: One view of the chest was acquired. COMPARISON: None FINDINGS: Surgical changes and devices: None. Lungs and pleura: No pleural effusions or pneumothorax. Lungs are clear. Mediastinum: Mediastinal contours appear normal. Heart size is normal. Bones and chest wall: No suspicious bony lesions. Overlying soft tissues appear unremarkable. IMPRESSION: No evidence acute pulmonary process. Reviewed by: Cesar Ríos MD on 08/17/2020 8:39 PM PDT Approved by: eCsar Ríos MD on 08/17/2020 8:39 PM PDT Station ID: [id number]
[2020-08-17 21:38] VITALS: BP 146/78
--- OUTSIDE RECORDS SUMMARY | 2020-08-24 00:17 | EXTERNAL MEDICAL SUMMARY RPT | Continuity of Care Document ---
:1940 Demographics Phone Unavailable Preferred Language German Marital Status Unknown Restorationism Affiliation Unknown Race Unknown Ethnic Group Unknown Author Organization [place] Address [address] [phone] Phone Care Team Providers Name Role Phone Demmler Unavailable Unavailable Foist Unavailable Unavailable Problems date description facility 20200730 Contact with and (suspected) [id number] Medications date description facility 20200530 Atenolol 25 MG Oral Tablet [facility] ital 20200530 Aspirin 81 MG Enteric Coated Tablet [facility] 20200530 Verapamil hydrochloride 80 MG Oral [facility] 20200530 Atenolol 25 MG Oral Tablet [facility] 20200530 Aspirin 81 MG Enteric Coated Tablet [facility] 20200530 Verapamil hydrochloride 80 MG Oral [facility] 20200530 Levothyroxine Sodium 0.05 MG Oral Capsu [facility] 20200730 Cephalexin 500 MG Oral Capsule [facility] Procedures date description facility 20200530 [facility] date description facility 20200530 [facility] date description facility 20200730 [facility] Vital Signs date measurement value source 20200530 BMI 28.3 kg/m2 20200530 BP_diastolic 76 mm[Hg] 20200530 BP_systolic 124 mm[Hg] 20200530 heart_rate 73 /min 20200530 height_metric 165.1 cm 20200530 height_standard 65 in 20200530 weight_metric 77.11 kg 20200530 weight_standard 170 lb 20200530 BMI 28.3 kg/m2 20200530 BP_diastolic 76 mm[Hg] 20200530 BP_systolic 124 mm[Hg] 20200530 heart_rate 73 /min 20200530 height_metric 165.1 cm 20200530 height_standard 65 in 20200530 weight_metric 77.11 kg 20200530 weight_standard 170 lb date measurement value source 20200730 BMI 27.4 kg/m2 20200730 BP_diastolic 78 mm[Hg] 20200730 BP_systolic 146 mm[Hg] 20200730 heart_rate 53 /min 20200730 height_metric 165.1 cm 20200730 height_standard 65 in 20200730 respiration_rate 16 /min 20200730 temperature_metric 36.72 C 20200730 temperature_standard 98.1 F 20200730 weight_metric 33.95 kg 20200730 weight_standard 74.84 lb Social History date description facility [id number]
== END 2020-08-17 21:59 | disposition home or self-care (01) ==
LOC: ED 19:52
DX: I47.1 Supraventricular tachycardia (principal); R03.0 Elevated blood-pressure reading, without diagnosis of hypertension
CPT/HCPCS: 36415; 71045; 80053; 83690; 83735; 84484; 85025; 93005; 99284; A9270

== ENCOUNTER 2020-08-22 13:00 | Outpatient (CLI) | payer MEDICARE, OTHER | END 2020-08-22 13:01 | disposition home or self-care (01) | LOC: RT 13:00 | PROVIDERS: ATTEND Internal Medicine Cardiovascular Disease | DX: Z51.81 Encounter for therapeutic drug level monitoring (principal); Z79.899 Other long term (current) drug therapy | CPT/HCPCS: 93005 ==

== ENCOUNTER 2020-09-26 17:02 | Outpatient (CLI) | payer MEDICARE, OTHER | END 2020-09-26 17:03 | disposition home or self-care (01) | LOC: COV 17:02 | PROVIDERS: ATTEND Ophthalmology | DX: Z01.812 Encounter for preprocedural laboratory examination (principal); H25.812 Combined forms of age-related cataract, left eye; Z20.822 Contact with and (suspected) exposure to COVID-19 ==

== ENCOUNTER 2020-09-29 08:58 | Day surgery (SDC) | payer MEDICARE, OTHER ==
[~2020-09-29 08:58] MED LIST: KETOROLAC 0.45% OPHTH DROPS ONE; PROPARACAINE 0.5% OPHTH DROPS 15 ML ONE
--- OUTSIDE RECORDS SUMMARY | 2020-09-29 09:01 | EXTERNAL MEDICAL SUMMARY RPT | Continuity of Care Document ---
:1940 Demographics Phone Unavailable Preferred Language [place] Marital Status Unknown Hinduism Affiliation Unknown Race Unknown Ethnic Group Unknown Author Organization [place] Address [address] [phone] Phone Care Team Providers Name Role Phone Demmler Unavailable Unavailable Medications date description facility 20200730 Cephalexin 500 MG Oral Capsule [facility] Problems date description facility 20200730 Contact with and (suspected) exposure t o COVID-19 [facility] Procedures date description facility 20200730 [facility] Vital Signs date measurement value source 20200730 weight_standard 74.84 lb 20200730 weight_metric 33.95 kg 20200730 temperature_standard 98.1 F 20200730 temperature_metric 36.72 C 20200730 respiration_rate 16 /min 20200730 height_standard 65 in 20200730 height_metric 165.1 cm 20200730 heart_rate 53 /min 20200730 BP_systolic 146 mm[Hg] 20200730 BP_diastolic 78 mm[Hg] 20200730 BMI 27.4 kg/m2
[2020-09-29] MEDS ORDERED: MIDAZOLAM 2 MG/2 ML VIAL ONE (09:38)
[2020-09-29] MEDS ORDERED: TRIAMCIN/MOXIFLOX OPHTHALMIC 0.6 ML VIAL IO ONE ×2 (09:42→10:10)
[2020-09-29] MEDS ORDERED: EPINEPHrine 1 MG/ML AMP ONE (09:42)
[2020-09-29] MEDS ORDERED: BRIMONIDINE 0.2% OPHTH DROPS 5 ML ONE (09:43)
[2020-09-29] MEDS ORDERED: BSS/LIDOCAINE/EPINEPHRINE 1 ML SYRINGE ONE (09:43)
[2020-09-29] MEDS ORDERED: VANCOMYCIN OPHTHALMI 8MG/0.8ML 8 MG/0.8 ML SYRINGE IO ONE ×2 (09:43→10:11)
[2020-09-29] MEDS ORDERED: TIMOLOL 0.5% OPHTH DROPS ONE (09:43)
[2020-09-29] MEDS ORDERED: LACTATED RINGERS 500 ML IV ONE (09:50)
--- NOTE | 2020-09-29 09:58 | ANESTHESIA ---
Pre-Anesthesia VS, & Labs - Diagnosis left senile cataract - Procedure left cataract extraction with IOL Vital Signs: Temp Pulse Resp BP Pulse Ox 36.3 C L 58 L 14 138/71 H 99 09/29/20 09:13 09/29/20 09:13 09/29/20 09:13 09/29/20 09:13 09/29/20 09:13 Height: 5 ft 4 in Weight (kg): 75 kg Body Mass Index: 28.3 BMI Classification: Overweight - NPO >8 hours - Is Patient ?: No Home Medications and Allergies Home Medications: Ambulatory Orders Vit A/Vit C/Vit E/Zinc/Copper [Preservision Areds Softgel] 2 each PO DAILY 09/28/20 Levothyroxine [Synthroid] 50 mcg PO QDAC 01/30/13 Cholecalciferol (Vitamin D3) [Vitamin D] 4,000 unit PO DAILY 03/26/14 Magnesium 400 mg PO DAILY 03/26/14 Ubidecarenone [Co Q-10] 100 mg PO DAILY 03/26/14 Latanoprost 0.005% Ophth Drops [Xalatan Ophth Drops] 40 drops EACHEYE QPM 02/21/16 Aspirin [Aspirin EC] 81 mg PO DAILY 04/28/20 Verapamil [Calan] 80 mg PO PRN PRN 04/28/20 Sotalol HCl [Betapace] 120 mg PO BID 08/17/20 Vit A/Vit C/Vit E/Zinc/Copper [Preservision Areds Softgel] 2 each PO DAILY 09/28/20 Allergies/Adverse Reactions: Allergies Allergy/AdvReac Type Severity Reaction Status Date / Time Tetracyclines Allergy Severe TINNITIS/PH Verified 08/17/20 20:07 OTOPHOBIA/M IGRAINES adhesive tape AdvReac Rash Verified 08/17/20 20:07 Anes History & Medical History - Anesthetic History Anesthesia Complications: reports: No previous complications - Medical History Cardiovascular: reports: Deep vein thrombosis, Arrhythmia Pulmonary: reports: None Gastrointestinal: reports: GERD, Hiatal hernia, Colon polyps Urinary: reports: Incontinence, Frequency Musculoskeletal: reports: Osteoarthritis Endocrine/Autoimmune: reports: HyPOthyroidism Blood Disorders: reports: None Skin: reports: Eczema, Psoriasis, Rosacea Smoking Status: Never smoker History of Cancer?: Yes (uterine) - Surgical History General: reports: Colonoscopy Eyes Ears Nose Throat (EENT): reports: Tonsil/Adenoidectomy Cardiothoracic: reports: Other Gynecologic: reports: LEEP (Cervical surgery), Other Orthopedic: reports: Hip replacement, Knee replacement Exam General: Alert Dental: WNL Mouth Opening: Greater than 4 Fingerbreadths Mallampati classification: II Respiratory: Lungs clear Cardiovascular: Regular rate Plan Anesthesia Type: MAC Consent for Procedure(s) Verified and Reviewed: Yes Code Status: Attempt Resuscitation ASA classification: 3-Severe systemic disease Is this case an emergency?: No
[2020-09-29] MEDS ORDERED: CHONDR SULF/HYALURONATE SYRINGE IO ONE (10:10)
[2020-09-29] MEDS ORDERED: TIMOLOL 0.5% OPHTH DROPS OPTH ONE (10:10)
[2020-09-29] MEDS ORDERED: BRIMONIDINE 0.2% OPHTH DROPS 5 ML OPTH ONE (10:10)
[2020-09-29] MEDS ORDERED: BSS/LIDOCAINE/EPINEPHRINE 1 ML SYRINGE IO ONE (10:10)
[2020-09-29] MEDS ORDERED: EPINEPHrine 1 MG/ML AMP IR ONE (10:10)
[2020-09-29] MEDS ORDERED: PROPARACAINE 0.5% OPHTH DROPS 15 ML EACHEYE ONE (10:11)
[2020-09-29] MEDS ORDERED: LACTATED RINGERS 300 ML IV ONE (10:22)
[2020-09-29 10:50] VITALS: BP 117/53
--- NOTE | 2020-09-29 11:30 | OPERATIVE REPORT ---
Operative Report - Other Other Information/Narrative: Date of Surgery: 09/29/20 Preop Dx: Visually significant cataract left eye. This was the first cataract surgery. Postop Dx: Same Procedure: Phacoemulsification with posterior chamber intraocular lens implant left eye Surgeon: Dr. Ivan Schultz Anesthesia: Monitored anesthesia care Complications: None Operative Indications: This is a 80-year-old F with progressive vision loss in the left eye due to 3+ nuclear sclerotic, and 3+ cortical cataract. Best corrected visual acuity was 20/30 with glare to 20/60 vision in the left eye. Indications for surgery were: - Overall decrease in vision - Difficulty reading - Difficulty seeing words, closed captions, or game scores on TV - Difficulty seeing street signs - Difficulty driving at night because of headlights from other vehicles - Difficulty with glare or bright lights in any situation The patient was consented at length concerning the risks and benefits of stevo ract surgery after which the patient expressed a desire to proceed with surgery. Operative Procedure: The patient was taken into OR#3 and placed under monitored anesthesia care. A surgical time-out was conducted confirming correct patient, correct procedure, and correct surgical site. The patient was given topical anesthesia and then prepped and draped in the usual sterile fashion. The eye was entered at the 6 and 3 oclock positions. Intracameral Shugarcaine was injected into the anterior chamber followed by a dispersive viscoelastic. A continuous-tear curvilinear capsulorhexis was performed. The nucleus was hydrodissected and phacoemulsified. The cortex was evacuated using automated infusion and aspiration. A cohesive viscoelastic was injected into the capsular bag and a 21.5 diopter intraocular lens was inserted into the bag. Infusion and aspiration were used to evacuate the viscoelastic materials from the eye. The wounds were hydrated and the eye inflated to physiologic pressure using balanced salt solution. Approximately 0.25ml of a mixture of triamcinolone and moxifloxacin was injected trans-sclerally into the vitreous in the inferotemporal quadrant using a 30 gauge cannula. An additional 0.55ml of a mixture of triamcinolone, moxifloxacin, and vancomycin was injected subconjunctivally in the superior quadrant for infection and inflammation prophylaxis. Wound integrity was checked with Weck-Margarita sponges. The patient was taken from the operating room in good condition and given post-op instructions.
--- NOTE | 2020-09-29 13:46 | ANESTHESIA POST OP EVALUATION ---
Anesthesia Post Eval - Post Anesthesia Eval Vitals: Last Vital Signs Temp 36.6 C 09/29/20 10:49 Pulse 61 09/29/20 10:49 Resp 16 09/29/20 10:49 BP 117/53 L 09/29/20 10:49 Pulse Ox 97 09/29/20 10:49 CV Function Including HR & BP: Stable Pain Control: Satisfactory Nausea & Vomiting: Negative Mental Status: Baseline Respiratory Status: Airway Patent Hydration Status: Satisfactory Anesthesia Complications: None
== END 2020-09-29 08:59 | disposition home or self-care (01) ==
LOC: SDS 08:58
PROVIDERS: ATTEND Ophthalmology
DX: H25.812 Combined forms of age-related cataract, left eye (principal); E66.3 Overweight; Z68.28 Body mass index [BMI] 28.0-28.9, adult; Z87.891 Personal history of nicotine dependence
CPT/HCPCS: 66984; A9270; J3490; J7120

== ENCOUNTER 2021-01-12 00:31 | Emergency (ER) | payer MEDICARE, OTHER ==
[2021-01-12] MEDS ORDERED: SODIUM CHLORIDE 0.9% 1,000 ML IV STA (01:33)
--- NOTE | 2021-01-12 01:35 | ED Physician Documentation ---
History of Present Illness - Stated complaint Stated Complaint: HIGH HR - Chief complaint Chief Complaint: Cardiac - History obtained from History obtained from: Patient - History of Present Illness Timing: Today - Additonal information Additional information: 80-year-old female with a history of SVT has had a number of different medications she is failed ablation and this evening she is experiencing a rapid heart rate she has her heart rate up to 130 she feels the palpitations in her chest and she states that usually under normal circumstances her heart rate is about 65. She is on a combination of verapamil and metoprolol. She has taken an extra dose of verapamil just like she had to last night and her heart rate now is in the range of about 85. She states this is still too fast for her. She has drank about 2 pints of ice water prior to coming to the emergency department. Patient states that she does have a history of thyroid disorder and she has had prior issues with low potassium. She does not feel that she will be dehydrated as she feels that she has been hydrating adequately. She states that she drinks 2 cups of coffee in the morning and 1 glass of wine at night she has not varied from that Review of Systems Constitutional: denies: Fever Eyes: denies: Decreased vision Ears: denies: Ear pain Nose: denies: Congestion Throat: denies: Sore throat Cardiac: reports: Palpitations. 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 : Incontinence, Frequency HEENT: Glaucoma, Other Psych: Claustrophobia Musculoskeletal: Osteoarthritis Derm: Eczema, Psoriasis, Rosacea - Past Surgical History Past Surgical History: Yes General: Colonoscopy Ortho: Hip replacement, Knee replacement /TRE[employer] 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: LEEP (Cervical surgery), Other Cardiovascular: Other HEENT: Tonsil/Adenoidectomy - Present Medications Home Medications: Ambulatory Orders Medication Instructions Recorded Confirmed Levothyroxine [Synthroid] 50 mcg PO QDAC 01/30/13 01/12/21 Cholecalciferol (Vitamin D3) 4,000 unit PO DAILY 03/26/14 01/12/21 [Vitamin D] Ubidecarenone [Co Q-10] 100 mg PO DAILY 03/26/14 01/12/21 Latanoprost 0.005% Ophth Drops 40 drops EACHEYE QPM 02/21/16 01/12/21 [Xalatan Ophth Drops] Aspirin [Aspirin EC] 81 mg PO DAILY 04/28/20 01/12/21 Verapamil [Calan] 80 mg PO PRN PRN 04/28/20 01/12/21 Vit A/Vit C/Vit E/Zinc/Copper 2 each PO DAILY 09/28/20 01/12/21 [Preservision Areds Softgel] Metoprolol Tartrate [Lopressor] 25 mg PO BID 01/12/21 01/12/21 - Allergies Allergies/Adverse Reactions: Allergies Allergy/AdvReac Type Severity Reaction Status Date / Time Tetracyclines Allergy Severe TINNITIS/PH Verified 01/12/21 00:50 OTOPHOBIA/M IGRAINES adhesive tape AdvReac Rash Verified 01/12/21 00:50 - Social History Does the pt smoke?: No Smoking Status: Never smoker Does the pt drink ETOH?: Yes Does the pt have substance abuse?: No - Immunizations Immunizations are current?: Yes - POLST Patient has POLST: No PD ED PE NORMAL - Vitals Vital signs reviewed: Yes (Tachycardic and hypertensive) - General General: Alert and oriented X 3, No acute distress, Well developed/nourished - HEENT HEENT: Atraumatic, PERRL, EOMI - Neck Neck: Supple, no meningeal sign, No bony TTP - Cardiac Cardiac: RRR, No murmur - Respiratory Respiratory: No respiratory distress, Clear bilaterally - Abdomen Abdomen: Soft, Non tender - Back Back: No CVA TTP, No spinal TTP - Derm Derm: Normal color, Warm and dry, No rash - Extremities Extremities: No deformity, No edema - Neuro Neuro: Alert and oriented X 3, chemists 2-12 intact, No motor deficit, No sensory deficit, Normal speech Eye Opening: Spontaneous Motor: Obeys Commands Verbal: Oriented GCS Score: 15 - Psych Psych: Normal mood, Normal affect Results - Vitals Vitals: Vital Signs - 24 hr 01/12/21 01/12/21 01/12/21 00:47 01:00 01:08 Temperature 37.2 C Heart Rate 115 H 99 76 Respiratory 16 16 16 Rate Blood Pressure 157/82 H 155/83 H O2 Saturation 97 98 98 01/12/21 01/12/21 01:57 02:42 Temperature Heart Rate 68 80 Respiratory 15 16 Rate Blood Pressure 150/76 H O2 Saturation 98 98 Oxygen O2 Source Room air - EKG (time done) 0039 Rate: Rate (enter#) (113) Rhythm: Sinus tachycardia Neely: Anterior hemiblock Compare to prior EKG: Changed from prior EKG (SPT 08-22-2020 the rate has increased) Computer interpretation: Agree with computer - Labs Labs: Laboratory Tests 01/12/21 01/12/21 01/12/21 00:45 01:41 01:41 WBC 6.4 RBC 4.58 Hgb 15.2 Hct 45.7 MCV 99.8 H MCH 33.2 H MCHC 33.3 RDW 13.2 Plt Count 255 MPV 9.0 Neut # (Auto) 4.9 Lymph # (Auto) 1.0 L [place] # (Auto) 0.4 Eos # (Auto) 0.1 Baso # (Auto) 0.0 Absolute Nucleated RBC 0.00 Nucleated RBC % 0.0 Sodium 137 Potassium 4.0 Chloride 100 L Carbon Dioxide 25 Anion Gap 12.0 BUN 16 Creatinine 0.9 Estimated GFR (MDRD) 60 L Glucose 119 H Calcium 10.1 Magnesium 2.2 Total Bilirubin 0.6 AST 20 ALT 17 Alkaline Phosphatase 70 Total Protein 7.5 Albumin 4.1 Globulin 3.4 Albumin/Globulin Ratio 1.2 Lipase 45 TSH Urine Color YELLOW Urine Clarity CLEAR Urine pH 6.5 Ur Specific [place] 1.010 Urine Protein NEGATIVE Urine Glucose (UA) NEGATIVE Urine Ketones NEGATIVE Urine Occult Blood TRACE-INTA Urine Nitrite NEGATIVE Urine Bilirubin NEGATIVE Urine Urobilinogen 0.2 (NORMAL) Ur Leukocyte Esterase TRACE H Urine RBC 0-5 Urine WBC 0-3 Ur Squamous Epith Cells MOD Squamous H Urine Bacteria Rare Ur Microscopic Review INDICATED Urine Culture Comments NOT INDICATED 01/12/21 01:41 WBC RBC Hgb Hct MCV MCH MCHC RDW Plt Count MPV Neut # (Auto) Lymph # (Auto) [place] # (Auto) Eos # (Auto) Baso # (Auto) Absolute Nucleated RBC Nucleated RBC % Sodium Potassium Chloride Carbon Dioxide Anion Gap BUN Creatinine Estimated GFR (MDRD) Glucose Calcium Magnesium Total Bilirubin AST ALT Alkaline Phosphatase Total Protein Albumin Globulin Albumin/Globulin Ratio Lipase TSH 4.23 Urine Color Urine Clarity Urine pH Ur Specific [place] Urine Protein Urine Glucose (UA) Urine Ketones Urine Occult Blood Urine Nitrite Urine Bilirubin Urine Urobilinogen Ur Leukocyte Esterase Urine RBC Urine WBC Ur Squamous Epith Cells Urine Bacteria Ur Microscopic Review Urine Culture Comments Procedures - IVC sono (time) 0130 Bedside IVC sono: IVC measures (cm), Dehydration (est 1-2 liter deficit) PD MEDICAL DECISION MAKING - ED course Complexity details: reviewed old records, reviewed results, re-evaluated patient, considered differential, d/w patient ED course: 80-year-old female with a history of SVT has developed a rapid heart rate this evening with palpitations and she has taken an extra dose of verapamil. She arrives to the emergency department with a heart rate of 113 and by the time I am in the room to see her her heart rate is 85. She states that she still feels this is too fast. And we initiate a work-up. On physical exam she is found to be dehydrated on interrogation the inferior vena cava and we are administering saline while we are in pursuit of our work-up. Our work-up is otherwise unremarkable there is no evidence of urinary tract infection or electrolyte abnormality or thyroid disorder. The patients heart rate came down to 75 but she continues to complain about palpitations. She wants to do something more because she is having these episodes daily. I have recommended the patient increase her metoprolol to 50mg BID and followup with Dr. Ackerman. Departure - Departure Disposition: 01 Home, Self Care Clinical Impression: Palpitations, Sinus tachycardia, Dehydration Condition: Stable Instructions: ED Dehydration, ED Tachycardia Pat PSVT Follow-Up: Nader Beckman MD [Primary Care Provider] - Luis Alberto Benitez MD [Physician No Access] - Comments: Today in the emergency department we found that your mildly dehydrated and we have given you fluid to correct that. The recommendation to keep your heart rate down is to increase your dose of metoprolol to 50 mg twice per day. Follow-up with Dr. Benitez.
[2021-01-12 01:37] LABS: BILIRUBIN,URINE NEGATIVE (NEGATIVE); GLUCOSE, URINE (UA) NEGATIVE (NEGATIVE); KETONES,URINE (UA) NEGATIVE (NEGATIVE); LEUKOCYTE ESTERASE, URINE TRACE (NEGATIVE); NITRITE,URINE NEGATIVE (NEGATIVE); OCCULT BLOOD,URINE TRACE-INTA (NEGATIVE); PH,URINE 6.5 PH (5.0-7.5); PROTEIN,URINE NEGATIVE (NEGATIVE); UROBILINOGEN,URINE 0.2 (NORMAL) E.U./dL (NORMAL)
[2021-01-12 01:38] LABS: CLARITY,URINE CLEAR (CLEAR)
[2021-01-12 01:43] LABS: BACTERIA,URINE Rare /HPF (None Seen); RBC,URINE 0-5 /HPF (0-5); SQUAMOUS EPITHELIAL CELL,UR MOD Squamous (<= Few); WBC,URINE 0-3 /HPF (0-5)
[2021-01-12 01:46] LABS: BASOPHILS % (AUTO) 0.3 %; EOSINOPHILS # (AUTO) 0.1 10^3/uL (0.0-0.7); EOSINOPHILS % (AUTO) 2.2 %; HCT - HEMATOCRIT 45.7 % (37.0-47.0); HGB - HEMOGLOBIN 15.2 g/dL (12.0-16.0); LYMPHOCYTES % (AUTO) 14.8 %; MEAN CORPUSCULAR HEMOGLOBIN 33.2 pg (27.0-31.0); MEAN CORPUSCULAR HGB CONC 33.3 g/dL (32.0-36.0); MEAN CORPUSCULAR VOLUME 99.8 fL (81.0-99.0); MONOCYTES # (AUTO) 0.4 10^3/uL (0.0-1.0); MONOCYTES % (AUTO) 6.5 %; NEUTROPHILS # (AUTO) 4.9 10^3/uL (1.5-6.6); NEUTROPHILS % (AUTO) 75.9 %; PLT - PLATELET COUNT 255 10^3/uL (130-450); RED BLOOD COUNT 4.58 10^6/uL (4.20-5.40); RED CELL DISTRIBUTION WIDTH 13.2 % (12.0-15.0); WHITE BLOOD COUNT 6.4 x10^3/uL (4.8-10.8)
[2021-01-12 02:00] LABS: ALBUMIN 4.1 g/dL (3.2-5.5); ALBUMIN/GLOBULIN RATIO 1.2 (1.0-2.2); BILIRUBIN,TOTAL 0.6 mg/dL (0.2-1.0); CALCIUM 10.1 mg/dL (8.5-10.3); CREATININE 0.9 mg/dL (0.4-1.0); MAGNESIUM 2.2 mg/dL (1.7-2.8); TOTAL PROTEIN 7.5 g/dL (6.7-8.2)
[2021-01-12 02:47] VITALS: BP 149/75
== END 2021-01-12 03:05 | disposition home or self-care (01) ==
LOC: ED 00:31
DX: E86.0 Dehydration (principal); R00.0 Tachycardia, unspecified; R00.2 Palpitations
CPT/HCPCS: 36415; 80053; 81001; 81003; 83690; 83735; 84443; 85025; 87086; 93005; 96360; 99284

== ENCOUNTER 2021-04-19 13:46 | Outpatient (CLI) | payer MEDICARE, OTHER ==
[2021-04-19 14:24] LABS: % IRON SATURATION 26 % (20-50); IRON 98 ug/dL (28-170); TOTAL IRON BINDING CAPACITY 375 ug/dL (250-450); TRANSFERRIN 268 mg/dL (192-382)
[2021-04-19 14:36] LABS: THYROID STIMULATING HORMONE 3.37 uIU/mL (0.34-5.60)
[2021-04-19 14:38] LABS: FREE T3 3.15 pg/mL (2.5-3.9); FREE T4 (FREE THYROXINE) 0.96 ng/dL (0.58-1.64)
== END 2021-04-19 13:47 | disposition home or self-care (01) ==
LOC: LAB 13:46
PROVIDERS: ATTEND Internal Medicine Cardiovascular Disease
DX: L65.8 Other specified nonscarring hair loss (principal); I47.1 Supraventricular tachycardia; R00.2 Palpitations
CPT/HCPCS: 36415; 82728; 83540; 84439; 84443; 84466; 84481

== ENCOUNTER 2021-05-24 13:54 | Outpatient (CLI) | payer MEDICARE, OTHER ==
[~2021-05-24 13:54] MED LIST changes: -KETOROLAC 0.45% OPHTH DROPS ONE; +LIDOCAINE 1%-EPI 1:100000 20 ML MDV ONE; -PROPARACAINE 0.5% OPHTH DROPS 15 ML ONE; +lidocaine 1% 20 ML MDV ONE
[2021-05-24] MEDS ORDERED: lidocaine 1% 20 ML MDV SUBQ ONE (15:19)
[2021-05-24] MEDS ORDERED: LIDOCAINE 1%-EPI 1:100000 20 ML MDV SUBQ ONE (15:21)
--- NOTE | 2021-05-26 07:46 | Mammography Report ---
UNILATERAL LEFT DIGITAL DIAGNOSTIC MAMMOGRAM 3D/2D: 05/24/2021 CLINICAL: Left breast mass. Comparison is made to exams dated: 05/18/2021 ultrasound, 05/18/2021 mammogram, 03/02/2019 mammogram , 01/09/2017 mammogram, 02/07/2015 mammogram, and 06/19/2013 mammogram - [facility]. The tissue of left breast is heterogeneously dense. This may lower the sensitivity of mammography. There is a biopsy marker clip in the region of the previously seen oval equal density focal asymmetry with an obscured and indistinct margin in the left breast at 1 o'clock middle depth. No other significant masses or calcifications are seen in the breast. IMPRESSION: INCOMPLETE: NEEDS ADDITIONAL IMAGING EVALUATION Biopsy marker clip at site of previous mass. This exam was interpreted at Station ID: [id number]. NOTE: For mammograms, a report in lay terms will be sent to the patient. Approximately 15% of breast malignancies will not be visualized mammographically. In the management of a palpable breast mass, a negative mammogram must not discourage biopsy of a clinically suspicious lesion. Electronically Signed By: Renzo fox/:05/24/2021 16:32:11 ACR BI-RADS Category 0: Incomplete 3340F PARENCHYMAL PATTERN: (D) - The breast(s) demonstrate(s) heterogeneously dense fibroglandular parenchy ma. BI-RADS CATEGORY: (0) - 0 Unspecified - other recall n/a LATERALITY: (B)
--- NOTE | 2021-06-01 06:56 | Ultrasound Report ---
ULTRASOUND GUIDED BIOPSY LEFT BREAST WITH MARKING DEVICE INSERTED AND POST DIGITAL MAMMOGRAPHIC IMAGI N05/24/2021 CLINICAL: Left breast mass. PATIENT CONSENT: Risks (minor bleeding, infection, vasovagal reaction and repeat procedure), benefits and alternatives were explained to the patient and written informed consent was obtained. Correlation is made to exams dated: 05/24/2021 mammogram, 05/18/2021 ultrasound, 05/18/2021 mammogram, 03/02/2019 mammogram, 01/09/2017 mammogram, and 02/07/2015 mammogram - [facility]. An ultrasound guided biopsy using real-time ultrasound was performed for the 0.6 cm x 0.5 cm x 0.6 cm abnormality located in the left breast at 1 o'clock middle depth 4 cm from the nipple. The skin was prepped in the usual manner. A biopsy needle was placed adjacent to the abnormality under ultrasoun d guidance. Once the needle was documented to be in the correct location, a specimen was obtained us ing an automated biopsy gun. The specimen was sent to the laboratory for pathological analysis. A m arker clip was placed at the site of biopsy. IMPRESSION: ULTRASOUND GUIDED BIOPSY MALIGNANT Ultrasound guided biopsy of the 0.6 cm x 0.5 cm x 0.6 cm abnormality in the left breast middle depth was performed. 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 Path ology results are concordant with mammography and ultrasound findings. Surgical and oncologic consultation are recommended. This exam was interpreted at Station ID: [id number]. Renzo fox,[facility]/:05/31/2021 16:43:33 Implanted Device GUDID information: GUDID: 0, Type: BxMarker, Breast: Left, Location: 1 o'clock BI-RADS CATEGORY: () - Unspecified - other recall n/a LATERALITY: (B)
== END 2021-05-24 13:55 | disposition home or self-care (01) ==
LOC: DI 13:54
PROVIDERS: ATTEND Obstetrics & Gynecology
DX: C50.412 Malignant neoplasm of upper-outer quadrant of left female breast (principal); Z17.0 Estrogen receptor positive status [ER+]
CPT/HCPCS: 19083; 88305; 88360

== ENCOUNTER 2021-07-31 07:56 | Day surgery (SDC) | payer MEDICARE, OTHER ==
[2021-07-31] MEDS ORDERED: CEFAZOLIN SODIUM IN 0.9 % NACL 2 GM/50 ML BAG IV ONE (08:22)
[2021-07-31] MEDS ORDERED: LACTATED RINGERS 1,000 ML IV ONE (08:23)
[2021-07-31] MEDS ORDERED: lidocaine 1% 20 ML MDV ONE (08:32)
[2021-07-31] MEDS ORDERED: LIDOCAINE MPF 2%-EPI 1:200000 20 ML VIAL ONE (09:34)
[2021-07-31] MEDS ORDERED: BUPIVACAINE 0.5% PF 10 ML VIAL ONE ×2 (09:35)
[2021-07-31] MEDS ORDERED: PROPOFOL 200 MG/20 ML VIAL IVP ONE (10:08)
[2021-07-31] MEDS ORDERED: LIDOCAINE-MPF 2% 5 ML VIAL ONE (10:08)
[2021-07-31] MEDS ORDERED: fentaNYL 100 MCG/2 ML VIAL ONE (10:08)
[2021-07-31] MEDS ORDERED: ONDANSETRON 4 MG/2 ML VIAL ONE (10:09)
[2021-07-31] MEDS ORDERED: KETOROLAC 30 MG/ML VIAL ONE (10:09)
[2021-07-31] MEDS ORDERED: DEXAMETHASONE 4 MG/ML VIAL ONE (10:09)
--- NOTE | 2021-07-31 10:45 | ANESTHESIA ---
Pre-Anesthesia VS, & Labs - Diagnosis left breast cancer - Procedure Left breast lumpectomy, SN dissection Vital Signs: Temp Pulse Resp BP Pulse Ox 36.7 C 81 16 137/82 H 95 07/31/21 08:23 07/31/21 08:23 07/31/21 08:23 07/31/21 08:23 07/31/21 08:23 Height: 5 ft 4 in Weight (kg): 77.7 kg Body Mass Index: 29.4 BMI Classification: Overweight - NPO >8 hours - Is Patient ?: No - Lab Results Lab results reviewed: Yes Home Medications and Allergies Home Medications: Ambulatory Orders Famotidine [Pepcid] 20 mg PO BID 07/27/21 Magnesium Oxide 400 mg PO DAILY 07/27/21 Levothyroxine [Synthroid] 50 mcg PO QDAC 01/30/13 Latanoprost 0.005% Ophth Drops [Xalatan Ophth Drops] 1 drops EACHEYE QPM 02/21/16 Aspirin [Aspirin EC] 81 mg PO DAILY PRN 04/28/20 Verapamil [Calan] 120 mg PO BID 04/28/20 Metoprolol Tartrate [Lopressor] 50 mg PO BID 01/12/21 Famotidine [Pepcid] 20 mg PO BID 07/27/21 Magnesium Oxide 400 mg PO DAILY 07/27/21 Allergies/Adverse Reactions: Allergies Allergy/AdvReac Type Severity Reaction Status Date / Time Tetracyclines Allergy Severe TINNITIS/PH Verified 07/31/21 08:31 OTOPHOBIA/M IGRAINES adhesive tape AdvReac Rash Verified 07/31/21 08:31 Anes History & Medical History - Anesthetic History Anesthesia Complications: reports: No previous complications Family history of Anesthesia Complications: Denies Family history of Malignant Hyperthermia: Denies - Medical History Cardiovascular: reports: Deep vein thrombosis, Arrhythmia Pulmonary: reports: None Gastrointestinal: reports: GERD, Hiatal hernia, Colon polyps Urinary: reports: Incontinence, Frequency Neuro: reports: None Musculoskeletal: reports: Osteoarthritis Endocrine/Autoimmune: reports: HyPOthyroidism Blood Disorders: reports: None Skin: reports: Eczema, Psoriasis, Rosacea Smoking Status: Never smoker - Surgical History General: reports: Colonoscopy Eyes Ears Nose Throat (EENT): reports: Cataracts, Tonsil/Adenoidectomy Cardiothoracic: reports: Other Gynecologic: reports: LEEP (Cervical surgery), Other Orthopedic: reports: Hip replacement, Knee replacement Exam General: Alert, Oriented x3, Cooperative, No acute distress Dental: WNL Mouth Openin Fingerbreadth Neck Mobility: Normal Mallampati classification: II Plan Anesthesia Type: General Consent for Procedure(s) Verified and Reviewed: Yes Code Status: Attempt Resuscitation ASA classification: 2-Mild systemic disease Is this case an emergency?: No
[2021-07-31] MEDS ORDERED: LIDOCAINE 2%-EPI 1:100000 20 ML MDV SUBQ ONE (11:37)
[2021-07-31] MEDS ORDERED: BUPIVACAINE 0.5% PF 30 ML VIAL INFIL ONE (11:37)
--- NOTE | 2021-07-31 11:42 | Nuclear Medicine Report ---
PROCEDURE: Lymph Node Scintigraphy INDICATIONS: LEFT BREAST CA RADIOPHARMACEUTICAL: 0.5-1.0 mCi Millipore filtered Tc-99m sulfur colloid. TECHNIQUE: The area around the nipple was prepped and draped in a sterile fashion. Tc-99m sulfur colloid was in jected intra-dermally in the outer edge of the areola in the left breast. Images were obtained subse quently. A body contour outline was obtained. FINDINGS: There there is faint visualization of a left axillary lymph node(s) in the ipsilateral axilla, which is marked on the skin and the images for referring physician. IMPRESSION: Administration of radiotracer into the left breast periareolar region for intra-operativ e sentinel lymph node localization. Reviewed by: Renzo Waterman MD on 07/31/2021 11:41 AM PDT Approved by: Renzo Waterman MD on 07/31/2021 11:41 AM PDT Station ID: [id number]
[2021-07-31] MEDS ORDERED: ePHEDrine 50 MG/ML VIAL IVP ONE (11:45)
--- NOTE | 2021-07-31 12:32 | OPERATIVE REPORT ---
Operative Report - General Procedure Date: 07/31/21 Planned Procedure: Left breast lumpectomy and sentinel node dissection following needle localization and lymphatic mapping Pre-Op Diagnosis: Biopsy-proven left breast cancer Procedure Performed: Left breast lumpectomy and sentinel node dissection following needle localization and lymphatic mapping Post Op Diagnosis: Biopsy-proven left breast cancer - Procedure Note Primary Surgeon: Fili Anesthesia Provider: EVARISTO Mendez Anesthesia Technique: General LMA Pathology: 1. [place] lymph node number 1-10-second count too numerous to count 2. [place] node number 2-10-second count too numerous to count 3. Additional lymph node 4. Left breast specimen marked with a short stitch superior, wire lateral, double stitch anterior 5. Additional anterior margin marked with a short stitch superior, long stitch lateral, and double stitch anterior. Estimated Blood Loss (mL): 10 Findings: 1. 2 sentinel nodes 2. Clip contained within the specimen. Complications: None apparent - Other Other Information/Narrative: After obtaining informed consent, the patient was brought to the operating room and placed in the supine position on the operating table. Following successful induction of general endotracheal anesthesia, appropriate padding of all bony prominences, and placement of appropriate monitors, the left breast was prepped and draped in the standard surgical fashion. A timeout was held per scope protocol. All elements of the surgical safety checklist were followed before, during, and after the procedure. We began the procedure with a sentinel node dissection. The site of the brightest node had been marked in radiology with 2 skin marker axis. The neoprobe was used to identify the site of greatest uptake at level 2 in the patient's axilla. An incision was created over this area of uptake and carried through the skin and subcutaneous tissue to enter the axillary node packet. The first sentinel node was easily identified. It was grossly normal in morphology. It was carefully dissected free from surrounding stop structures sharply, all lymphatics and vasculature were addressed with clips prior to division. The node was liberated into the field. 10-second counts are recorded. Survey of the axilla revealed continued high uptake. A second sentinel node was identified just posterior to the first. Again it was addressed in the same manner. It was gently retracted and sharply freed from the surrounding structures. All lymphatics and vasculature were dressed with hemoclips and the node was liberated. It was delivered into the field and a 10-second count was obtained. Upon dissecting out the second sentinel node from surrounding axillary tissue, it was densely adherent to a more posterior node. I elected to take that node as a separate nonsentinel node. Its 10-second count was only 1025. The axilla was examined for hemostasis. It was irrigated with warm water and aspirated free of fluid and particulate matter. Background in the axilla was checked and found to be 19-33. Background in the room was 0. We continued with lumpectomy through the same incision as the lesion was accessible through the site and located in the upper outer quadrant. Dissection was carried out anteriorly to free the wire from the underlying tissue. It was carefully followed to its endpoint at the lesion. Using sharp dissection, the lesion and surrounding tissue were carefully removed with the wire intact. It was marked for orientation and submitted for specimen x-ray. As we waited for x-ray resul t, palpation of the tissue anterior to this lesion revealed some firm feeling nodular regions. I elected to take an additional anterior margin. This was marked for orientation as well and submitted in formalin. The radiologist called back into the room to report that the clip was contained within the first specimen. The wound was checked for hemostasis. It was irrigated again with warm water. The wound was then closed in 2 layers with Vicryl and Monocryl sutures. All sponge, needle, and instrument counts were correct at the conclusion of the case. The patient was let awakened anesthesia without difficulty and taken to the postanesthesia care unit in good condition.
[2021-07-31] MEDS ORDERED: ACETAMINOPHEN 325 MG TABLET PO PRN (12:38)
[2021-07-31] MEDS ORDERED: IBUPROFEN 600 MG TABLET PO PRN (12:38)
[2021-07-31] MEDS ORDERED: oxyCODONE 5 MG TABLET PO PRN (12:38)
[2021-07-31] MEDS ORDERED: ONDANSETRON 4 MG/2 ML VIAL IVP PRN ×2 (12:38→12:48)
[2021-07-31] MEDS ORDERED: LACTATED RINGERS 200 ML IV ONE (12:41)
[2021-07-31] MEDS ORDERED: fentaNYL 100 MCG/2 ML VIAL IVP PRN (12:48)
[2021-07-31] MEDS ORDERED: NALOXONE 0.4 MG/ML VIAL IVP PRN (12:48)
[2021-07-31] MEDS ORDERED: MORPHINE 2 MG/ML CARPUJECT IVP PRN (12:48)
[2021-07-31] MEDS ORDERED: ATROPINE ABBOJECT 1 MG/10 ML SYRINGE IVP PRN (12:48)
[2021-07-31] MEDS ORDERED: HYDROmorphone 0.5 MG/0.5 ML SYRINGE IVP PRN (12:48)
[2021-07-31] MEDS ORDERED: METOCLOPRAMIDE 10 MG/2 ML VIAL IVP PRN (12:48)
[2021-07-31] MEDS ORDERED: ePHEDrine 50 MG/ML VIAL IVP PRN (12:48)
[2021-07-31] MEDS ORDERED: ACETAMINOPHEN 1,000 MG/100 ML 100 ML IV PRN (12:49)
[2021-07-31] MEDS ORDERED: LACTATED RINGERS 1,000 ML IV SCH (13:00)
--- NOTE | 2021-07-31 13:02 | ANESTHESIA POST OP EVALUATION ---
Anesthesia Post Eval - Post Anesthesia Eval Vitals: Last Vital Signs Temp 36.0 C L 07/31/21 12:59 Pulse 92 07/31/21 12:59 Resp 10 L 07/31/21 12:59 BP 120/73 07/31/21 12:59 Pulse Ox 98 07/31/21 12:59 CV Function Including HR & BP: Stable Pain Control: Satisfactory Nausea & Vomiting: Negative Mental Status: Baseline Respiratory Status: Airway Patent Hydration Status: Satisfactory Anesthesia Complications: None
[2021-07-31 13:36] VITALS: BP 147/86
--- NOTE | 2021-07-31 14:46 | XRAY Report ---
SPECIMEN LEFT BREAST: 07/31/2021 CLINICAL: Left breast specimen. No prior exams were available for correlation. A wire localization and lumpectomy specimen was imaged for the previous biopsy site located in the l eft breast at 1 o'clock middle depth. IMPRESSION: SPECIMEN The imaged specimen includes a biopsy clip and the distal portion of the localization wire. This exam was interpreted at Station ID: [id number]. Vick brice/penrad:07/31/2021 12:52:47 Implanted Device GUDID information: GUDID: 0, Type: BxMarker, Breast: Left, Location: 1 o'clock Unspecified - other recall n/a B
--- NOTE | 2021-07-31 14:46 | Ultrasound Report ---
ULTRASOUND GUIDED NEEDLE LOCALIZATION LEFT BREAST: 07/31/2021 CLINICAL: Left breast mass, wire placement. Correlation is made to exams dated: 06/21/2021 breast MRI - [facility], 05/24/2021 ultrasound biops y, 05/24/2021 mammogram, 05/18/2021 ultrasound, 05/18/2021 mammogram, and 03/02/2019 mammogram - [facility]. A needle localization using ultrasound guidance was performed for the marker clip located in the left breast at 1 o'clock middle depth. The skin was prepped in the usual manner. Local anesthetic was a dministered to the access site. A skin adela was made in the breast. The localization was approached from the lateral aspect. A needle was inserted into the targeted area under ultrasound guidance. A sterile dressing was applied to the access site. Post placement imaging demonstrates the tip demarc ates the boundaries of the targeted area. IMPRESSION: NEEDLE LOCALIZATION Needle localization for the marker clip in the left breast at 1 o'clock middle depth was successful w ith no apparent post procedure complications. This exam was interpreted at Station ID: [id number]. Vick brice/penalonzo:07/31/2021 10:45:47 Implanted Device GUDID information: GUDID: 0, Type: BxMarker, Breast: Left, Location: 1 o'clock BI-RADS CATEGORY: () - Unspecified - other recall n/a LATERALITY: (B)
[2021-07-31] MEDS ORDERED: lidocaine 1% 20 ML MDV SUBQ ONE (15:53)
== END 2021-07-31 07:57 | disposition home or self-care (01) ==
LOC: SDS 07:56
PROVIDERS: ATTEND Surgery
PROC: 07B60ZX Excision of Left Axillary Lymphatic, Open Approach, Diagnostic (ICD-10-PCS; 2021-07-31)
PROC: 0HBU0ZZ Excision of Left Breast, Open Approach (ICD-10-PCS; principal; 2021-07-31 10:15)
DX: C50.912 Malignant neoplasm of unspecified site of left female breast (principal); C77.3 Secondary and unspecified malignant neoplasm of axilla and upper limb lymph nodes
CPT/HCPCS: 19285; 19301; 38525; 78195; J0690; J7120

== ENCOUNTER 2021-09-11 10:27 | Day surgery (SDC) | payer MEDICARE, OTHER ==
[~2021-09-11 10:27] MED LIST changes: +BUPIVACAINE 0.25% PF 10 ML VIAL ONE; -LIDOCAINE 1%-EPI 1:100000 20 ML MDV ONE; +LIDOCAINE MPF 2%-EPI 1:200000 20 ML VIAL ONE; -lidocaine 1% 20 ML MDV ONE
[2021-09-11] MEDS ORDERED: LACTATED RINGERS 1,000 ML IV ONE (10:35)
[2021-09-11] MEDS ORDERED: LIDOCAINE-MPF 1% 10 ML AMP ONE (11:22)
--- NOTE | 2021-09-11 11:23 | ANESTHESIA ---
Pre-Anesthesia VS, & Labs - Diagnosis left breast cancer - Procedure Left breast lumpectomy re-excision with needle localization Vital Signs: Temp Pulse Resp BP Pulse Ox 36.1 C L 83 16 175/86 H 98 09/11/21 10:35 09/11/21 10:35 09/11/21 10:35 09/11/21 10:35 09/11/21 10:35 Height: 5 ft 4 in Weight (kg): 77.7 kg Body Mass Index: 29.4 BMI Classification: Overweight - NPO Last Fluid Intake: black coffee 0700 12 oz - Is Patient ?: No Home Medications and Allergies Levothyroxine [Synthroid] 50 mcg PO QDAC 01/30/13 Latanoprost 0.005% Ophth Drops [Xalatan Ophth Drops] 1 drops EACHEYE QPM 02/21/16 Aspirin [Aspirin EC] 81 mg PO DAILY PRN 04/28/20 Verapamil [Calan] 120 mg PO BID 04/28/20 Metoprolol Tartrate [Lopressor] 50 mg PO BID 01/12/21 Famotidine [Pepcid] 20 mg PO BID 07/27/21 Magnesium Oxide 400 mg PO DAILY 07/27/21 Anastrozole 09/05/21 Allergies/Adverse Reactions: Allergies Allergy/AdvReac Type Severity Reaction Status Date / Time Tetracyclines Allergy Severe TINNITIS/PH Verified 07/31/21 08:31 OTOPHOBIA/M IGRAINES adhesive tape AdvReac Rash Verified 07/31/21 08:31 Anes History & Medical History - Anesthetic History Anesthesia Complications: reports: No previous complications - Medical History Cardiovascular: reports: Deep vein thrombosis, Arrhythmia Pulmonary: reports: None Gastrointestinal: reports: GERD, Hiatal hernia, Colon polyps, Other Urinary: reports: Incontinence, Frequency Neuro: reports: None Musculoskeletal: reports: Osteoarthritis Endocrine/Autoimmune: reports: HyPOthyroidism Blood Disorders: reports: None Skin: reports: Eczema, Psoriasis, Rosacea Smoking Status: Former smoker Psychosocial: reports: No issues indicated History of Cancer?: Yes - Surgical History General: reports: Colonoscopy Eyes Ears Nose Throat (EENT): reports: Cataracts, Tonsil/Adenoidectomy Cardiothoracic: reports: Other (EP study/ ablation) Gynecologic: reports: Dilation and currettage, Hysterectomy, Oophrectomy, LEEP (Cervical surgery), Other Orthopedic: reports: Hip replacement, Knee replacement, Carpal Tunnel surgery Exam General: Alert, Oriented x3, Cooperative, No acute distress Dental: WNL Mouth Openin Fingerbreadth Neck Mobility: Normal Mallampati classification: II Mental/Cognitive Status: Alert/Oriented X3, Normal for patient Plan Anesthesia Type: General (as back up), MAC Consent for Procedure(s) Verified and Reviewed: Yes Code Status: Attempt Resuscitation ASA classification: 2-Mild systemic disease Is this case an emergency?: No
[2021-09-11] MEDS ORDERED: PROPOFOL 500 MG/50 ML 500 MG/50 ML VIAL ONE (13:18)
[2021-09-11] MEDS ORDERED: fentaNYL 100 MCG/2 ML VIAL ONE (13:19)
[2021-09-11] MEDS ORDERED: ceFAZolin 1 GM VIAL ONE (13:41)
[2021-09-11] MEDS ORDERED: BUPIVACAINE 0.25% PF 10 ML VIAL SUBQ ONE (13:42)
[2021-09-11] MEDS ORDERED: LIDOCAINE MPF 2%-EPI 1:200000 20 ML VIAL SUBQ ONE (13:46)
[2021-09-11] MEDS ORDERED: LACTATED RINGERS 400 ML IV ONE (14:40)
--- NOTE | 2021-09-11 14:42 | OPERATIVE REPORT ---
Operative Report - General Procedure Date: 09/11/21 Planned Procedure: Reexcision of margins after repeat needle localization in the setting of an 81-year-old lady with biopsy-proven left breast cancer and no clip or biopsy found on final pathology at primary excision. Pre-Op Diagnosis: Retained clip following lumpectomy. Procedure Performed: Reexcision of margins following needle localization Post Op Diagnosis: Retained clip following lumpectomy - Procedure Note Primary Surgeon: Fili Anesthesia Provider: EVARISTO Kee Anesthesia Technique: Local Pathology: 1. Left breast mass containing wire.-Marked with a short stitch superior, wire lateral, double anterior 2. Left breast mass, additional anterior margin.-Marked with a short stitch superior, long stitch lateral, double stitch anterior, 3. Additional anteromedial margin - Again marked with short stitch superior, long stitch lateral, double stitch anterior 4. Additional anterior margin-long stitch lateral, short stitch superior, double stitch anterior. 5. Last additional anterior margin.-Short stitch superior, long stitch lateral, double stitch anterior. Estimated Blood Loss (mL): 10 Findings: Wire and surrounding tissue removed as for specimen. No clip was seen so additional margins were taken. Complications: Never able to identify the clip within the specimen. - Other Other Information/Narrative: After obtaining informed consent, the patient is brought the operating room and placed in the supine position on the examination table. By her request, she received no sedation or anesthesia. A timeout was held per scope protocol. All elements of the surgical safety checklist were followed before, during, and after the procedure. The left breast and chest were prepped and draped in the standard surgical fashion. We began by infiltrating a mixture of local anesthetics in the existing axillary incision and into the more inferior breast tissue including that tissue around the localizing wire. An incision was created at the existing site carried through the skin and subcutaneous tissue. The wire was followed into the breast tissue and the entire wire and surrounding tissue were removed as the first specimen.Neurologist called back into the room reporting there was no clip identified. Additional margins were taken in the anterior medial and anterior lateral positions as the wire had been posterior to the existing clip and lesion on ultrasound. We did obtain a specimen that appeared to contain the lesion but we were never able to identify the clip. We discussed intraoperative ultrasound as well as fluoroscopy both of which Dr. Lucero felt would not be useful as the clip is so small. We felt it unlikely that the lesion remained considering how much tissue we had removed around the tract of the wire. As the patient was completely awake, we discussed the scenario with her and after the fifth specimen, elected to terminate the procedure. The wound was irrigated with warm water and aspirated free of all fluid and particulate matter. It was closed in 2 layers with Vicryl and Monocryl suture. Dermabond was applied to the skin.
[2021-09-11] MEDS ORDERED: IBUPROFEN 600 MG TABLET PO PRN (14:47)
[2021-09-11] MEDS ORDERED: oxyCODONE 5 MG TABLET PO PRN (14:47)
[2021-09-11] MEDS ORDERED: ACETAMINOPHEN 325 MG TABLET PO PRN (14:47)
[2021-09-11] MEDS ORDERED: ONDANSETRON 4 MG/2 ML VIAL IVP PRN (14:47)
[2021-09-11 15:03] VITALS: BP 155/90
[2021-09-11] MEDS ORDERED: LIDOCAINE-MPF 1% 10 ML AMP SUBQ ONE (15:28)
--- NOTE | 2021-09-11 16:00 | ANESTHESIA POST OP EVALUATION ---
Anesthesia Post Eval - Post Anesthesia Eval Vitals: Last Vital Signs Temp 36.5 C 09/11/21 15:00 Pulse 66 09/11/21 15:00 Resp 16 09/11/21 15:00 BP 155/90 H 09/11/21 15:00 Pulse Ox 98 09/11/21 15:00 CV Function Including HR & BP: Stable Pain Control: Satisfactory Nausea & Vomiting: Negative Mental Status: Baseline Respiratory Status: Airway Patent Hydration Status: Satisfactory Anesthesia Complications: None
== END 2021-09-11 10:28 | disposition home or self-care (01) ==
LOC: SDS 10:27
PROVIDERS: ATTEND Surgery
PROC: 0HBU0ZZ Excision of Left Breast, Open Approach (ICD-10-PCS; principal; 2021-09-11 11:30)
DX: D05.12 Intraductal carcinoma in situ of left breast (principal); M79.5 Residual foreign body in soft tissue; I10 Essential (primary) hypertension; Z17.0 Estrogen receptor positive status [ER+]; Z87.891 Personal history of nicotine dependence
CPT/HCPCS: 19285; 19301; J7120

== ENCOUNTER 2022-01-17 01:26 | Emergency (ER) | payer MEDICARE, OTHER ==
--- NOTE | 2022-01-17 01:57 | XRAY Report ---
PROCEDURE: Chest 1 View X-Ray INDICATIONS: Chest pain TECHNIQUE: One view of the chest was acquired. COMPARISON: 08/17/20. FINDINGS: Surgical changes and devices: None. Lungs and pleura: No pleural effusions or pneumothorax. Lungs are clear. Mediastinum: Mediastinal contours appear normal. Heart size is normal. Bones and chest wall: No suspicious bony lesions. Overlying soft tissues appear unremarkable. IMPRESSION: 1. No acute cardiopulmonary disease. Reviewed by: Jun Velazco MD on 01/17/2022 1:55 AM PDT Approved by: Jun Velazco MD on 01/17/2022 1:55 AM PDT Station ID: [id number]
[2022-01-17 02:09] LABS: BASOPHILS % (AUTO) 0.3 %; EOSINOPHILS # (AUTO) 0.3 10^3/uL (0.0-0.7); EOSINOPHILS % (AUTO) 3.9 %; HCT - HEMATOCRIT 43.5 % (37.0-47.0); HGB - HEMOGLOBIN 15.1 g/dL (12.0-16.0); LYMPHOCYTES # (AUTO) 0.7 10^3/uL (1.5-3.5); LYMPHOCYTES % (AUTO) 9.4 %; MEAN CORPUSCULAR HEMOGLOBIN 33.9 pg (27.0-31.0); MEAN CORPUSCULAR HGB CONC 34.7 g/dL (32.0-36.0); MEAN CORPUSCULAR VOLUME 97.8 fL (81.0-99.0); MEAN PLATELET VOLUME 8.9 fL (7.9-10.8); MONOCYTES # (AUTO) 0.6 10^3/uL (0.0-1.0); NEUTROPHILS # (AUTO) 5.8 10^3/uL (1.5-6.6); NEUTROPHILS % (AUTO) 78.1 %; PLT - PLATELET COUNT 255 10^3/uL (130-450); RED BLOOD COUNT 4.45 10^6/uL (4.20-5.40); RED CELL DISTRIBUTION WIDTH 13.2 % (12.0-15.0); WHITE BLOOD COUNT 7.5 x10^3/uL (4.8-10.8)
[2022-01-17 02:11] LABS: ALBUMIN 3.8 g/dL (3.2-5.5); ALBUMIN/GLOBULIN RATIO 1.2 (1.0-2.2); BILIRUBIN,TOTAL 0.6 mg/dL (0.2-1.0); CALCIUM 9.8 mg/dL (8.5-10.3); CREATININE 0.8 mg/dL (0.4-1.0); POTASSIUM 4.4 mmol/L (3.5-5.0); TOTAL PROTEIN 6.9 g/dL (6.7-8.2)
--- NOTE | 2022-01-17 04:51 | ED Physician Documentation ---
History of Present Illness - Stated complaint Stated Complaint: RAPID HR - Chief complaint Chief Complaint: Cardiac - History obtained from History obtained from: Patient - History of Present Illness Timing: Enter time (19:00) Pain level max: 0 Pain level now: 0 Improved by: nothing Worsened by: no exacerbating factors - Additonal information Additional information: c/o "fast heart rate" (per patient), starting at approximately 7 PM today. She says her heart rate was as high as 100-110 range. Denies chest pain, dyspnea, lightheadedness. Although she has very infrequent ED visits, she has had previous visits with similar c/o of isolated mild tachycardia Review of Systems Cardiac: reports: Palpitations. denies: Chest pain / pressure, Pedal edema, Calf pain Respiratory: reports: Reviewed and negative GI: reports: Reviewed and negative Musculoskeletal: denies: Extremity swelling PD PAST MEDICAL HISTORY - Past Medical History Past Medical History: Yes Cardiovascular: Deep vein thrombosis, Arrhythmia Respiratory: None Neuro: None Endocrine/Autoimmune: HyPOthyroidism GI: GERD, Hiatal hernia, Colon polyps, Other ACCOUNT CLASSIFICATION CLERK: None : Incontinence, Frequency HEENT: Glaucoma, Chronic sinusitis, Other Psych: Anxiety, Claustrophobia Musculoskeletal: Osteoarthritis Derm: Eczema, Psoriasis, Rosacea - Past Surgical History Past Surgical History: Yes General: Colonoscopy Ortho: Hip replacement, Knee replacement, Carpal Tunnel surgery /ACCOUNT CLASSIFICATION CLERK: Dilation and currettage, Hysterectomy, Oophrectomy, LEEP (Cervical surgery), Other Cardiovascular: Other HEENT: Cataracts, Tonsil/Adenoidectomy - Present Medications Home Medications: Ambulatory Orders Medication Instructions Recorded Confirmed Levothyroxine [Synthroid] 50 mcg PO UD 01/30/13 01/15/22 Latanoprost 0.005% Ophth Drops 1 drops EACHEYE QPM 02/21/16 01/15/22 [Xalatan Ophth Drops] Verapamil [Calan] 120 mg PO BID 04/28/20 01/15/22 Metoprolol Tartrate [Lopressor] 50 mg PO BID 01/12/21 01/15/22 Famotidine [Pepcid] 20 mg PO BID 07/27/21 01/15/22 Magnesium Oxide 400 mg PO DAILY 07/27/21 01/15/22 Anastrozole 09/05/21 Oxybutynin [Ditropan] 5 mg PO HS 10/24/21 01/15/22 - Allergies Allergies/Adverse Reactions: Allergies Allergy/AdvReac Type Severity Reaction Status Date / Time Tetracyclines Allergy Severe TINNITIS/PH Verified 01/17/22 01:29 OTOPHOBIA/M IGRAINES adhesive tape AdvReac Rash Verified 01/17/22 01:29 - Social History Does the pt smoke?: No Smoking Status: Never smoker Does the pt drink ETOH?: Yes Does the pt have substance abuse?: No - Immunizations Immunizations are current?: Yes - POLST Patient has POLST: No PD ED PE NORMAL - Vitals Vital signs reviewed: Yes - General General: Alert and oriented X 3, No acute distress, Well developed/nourished - HEENT HEENT: Moist mucous membranes - Cardiac Cardiac: No murmur, No gallop, No rub - Respiratory Respiratory: No respiratory distress, Clear bilaterally - Extremities Extremities: No edema PD ED PE EXPANDED - Cardiac Cardiac: Tachy, Regular Rhythm Results - Vitals Vitals: Oxygen O2 Source Room air - EKG (time done) No standard instances Rate: Rate (enter#) (106) Rhythm: Sinus tachycardia [place]: LAD, Anterior hemiblock Intervals: Normal [place] QRS: Normal Ischemia: Normal ST segments Compare to prior EKG: Unchanged from prior EKG (no significant change compared to 01/12/22 EKG) - Labs Labs: Laboratory Tests 01/17/22 01/17/22 01/17/22 01:53 01:53 01:53 WBC 7.5 RBC 4.45 Hgb 15.1 Hct 43.5 MCV 97.8 MCH 33.9 H MCHC 34.7 RDW 13.2 Plt Count 255 MPV 8.9 Neut # (Auto) 5.8 Lymph # (Auto) 0.7 L Anson # (Auto) 0.6 Eos # (Auto) 0.3 Baso # (Auto) 0.0 Absolute Nucleated RBC 0.00 Nucleated RBC % 0.0 Sodium 136 Potassium 4.4 Chloride 104 Carbon Dioxide 24 Anion Gap 8.0 BUN 17 Creatinine 0.8 Estimated GFR (MDRD) 69 L Glucose 137 H Calcium 9.8 Total Bilirubin 0.6 AST 20 ALT 21 Alkaline Phosphatase 64 Troponin I High Sens 5.0 Total Protein 6.9 Albumin 3.8 Globulin 3.1 Albumin/Globulin Ratio 1.2 Lipase 41 PD MEDICAL DECISION MAKING - ED course Complexity details: reviewed results, re-evaluated patient, considered differential, d/w patient Departure - Departure Disposition: 01 Home, Self Care Clinical Impression: Palpitations Condition: Good Instructions: ED Palpitations Comments: Follow up with your installer as scheduled. The results of tonight's tests are unremarkable, including EKG, chest xray, and blood tests. Discharge Date/Time: 01/17/22 05:16
[2022-01-17 05:16] VITALS: BP 141/76
== END 2022-01-17 05:16 | disposition home or self-care (01) ==
LOC: ED 01:26
DX: R00.2 Palpitations (principal)
CPT/HCPCS: 36415; 80053; 83690; 84484; 85025; 93005; 99282; 99284

== ENCOUNTER 2022-09-25 08:52 | Outpatient (CLI) | payer MEDICARE, OTHER ==
[2022-09-25 09:04] LABS: BASOPHILS % (AUTO) 0.2 %; EOSINOPHILS # (AUTO) 0.4 10^3/uL (0.0-0.7); EOSINOPHILS % (AUTO) 7.1 %; HCT - HEMATOCRIT 44.4 % (37.0-47.0); HGB - HEMOGLOBIN 14.8 g/dL (12.0-16.0); LYMPHOCYTES # (AUTO) 0.8 10^3/uL (1.5-3.5); LYMPHOCYTES % (AUTO) 13.5 %; MEAN CORPUSCULAR HEMOGLOBIN 33.5 pg (27.0-31.0); MEAN CORPUSCULAR HGB CONC 33.3 g/dL (32.0-36.0); MEAN CORPUSCULAR VOLUME 100.5 fL (81.0-99.0); MEAN PLATELET VOLUME 8.8 fL (7.9-10.8); MONOCYTES # (AUTO) 0.5 10^3/uL (0.0-1.0); MONOCYTES % (AUTO) 8.5 %; NEUTROPHILS % (AUTO) 70.5 %; PLT - PLATELET COUNT 237 10^3/uL (130-450); RED BLOOD COUNT 4.42 10^6/uL (4.20-5.40); RED CELL DISTRIBUTION WIDTH 13.4 % (12.0-15.0); WHITE BLOOD COUNT 5.7 x10^3/uL (4.8-10.8)
[2022-09-25 09:22] LABS: ALBUMIN 3.6 g/dL (3.2-5.5); ALBUMIN/GLOBULIN RATIO 1.2 (1.0-2.2); ALKALINE PHOSPHATASE 60 IU/L (42-121); ALT ALANINE AMINOTRANSFERASE 18 IU/L (10-60); AST ASPARTATE AMINOTRANSFERASE 18 IU/L (10-42); BILIRUBIN,TOTAL 0.8 mg/dL (0.2-1.0); BUN - BLOOD UREA NITROGEN 13 mg/dL (6-20); CALCIUM 9.1 mg/dL (8.5-10.3); CARBON DIOXIDE - CO2 23 mmol/L (21-32); CHLORIDE 104 mmol/L (101-111); CHOLESTEROL 259 mg/dL; GFR - MDRD 53 (>89); GLUCOSE 103 mg/dL (70-100); HDL CHOLESTEROL 64 mg/dL; LDL CHOLESTEROL,CALCULATED 176 mg/dL; LDL/HDL RATIO 2.8 (<4.4); POTASSIUM 4.5 mmol/L (3.5-5.0); SODIUM 137 mmol/L (135-145); TOTAL PROTEIN 6.6 g/dL (6.7-8.2); TRIGLYCERIDES 94 mg/dL; VLDL CHOLESTEROL 19 mg/dL
[2022-09-25 09:33] LABS: THYROID STIMULATING HORMONE 3.43 uIU/mL (0.34-5.60)
[2022-09-25 09:35] LABS: FREE T3 3.25 pg/mL (2.5-3.9); FREE T4 (FREE THYROXINE) 0.96 ng/dL (0.58-1.64)
== END 2022-09-25 08:53 | disposition home or self-care (01) ==
LOC: LAB 08:52
PROVIDERS: ATTEND Family Medicine
DX: I10 Essential (primary) hypertension (principal); K21.9 Gastro-esophageal reflux disease without esophagitis; C50.912 Malignant neoplasm of unspecified site of left female breast; F42.9 Obsessive-compulsive disorder, unspecified; M54.16 Radiculopathy, lumbar region; E03.9 Hypothyroidism, unspecified; M19.90 Unspecified osteoarthritis, unspecified site; E78.5 Hyperlipidemia, unspecified
CPT/HCPCS: 36415; 80053; 80061; 83721; 84439; 84443; 84481; 85025

== ENCOUNTER 2023-03-06 07:16 | Outpatient (CLI) | payer MEDICARE, OTHER ==
[2023-03-06 07:58] LABS: BASOPHILS % (AUTO) 0.4 %; EOSINOPHILS # (AUTO) 0.3 10^3/uL (0.0-0.7); EOSINOPHILS % (AUTO) 6.2 %; HCT - HEMATOCRIT 42.9 % (37.0-47.0); HGB - HEMOGLOBIN 14.3 g/dL (12.0-16.0); LYMPHOCYTES # (AUTO) 0.7 10^3/uL (1.5-3.5); LYMPHOCYTES % (AUTO) 13.9 %; MEAN CORPUSCULAR HEMOGLOBIN 33.3 pg (27.0-31.0); MEAN CORPUSCULAR HGB CONC 33.3 g/dL (32.0-36.0); MEAN PLATELET VOLUME 8.8 fL (7.9-10.8); MONOCYTES # (AUTO) 0.5 10^3/uL (0.0-1.0); MONOCYTES % (AUTO) 10.4 %; NEUTROPHILS # (AUTO) 3.3 10^3/uL (1.5-6.6); NEUTROPHILS % (AUTO) 68.9 %; PLT - PLATELET COUNT 245 10^3/uL (130-450); RED BLOOD COUNT 4.29 10^6/uL (4.20-5.40); RED CELL DISTRIBUTION WIDTH 13.2 % (12.0-15.0); WHITE BLOOD COUNT 4.8 x10^3/uL (4.8-10.8)
[2023-03-07 08:10] LABS: ANTISTREPTOLYSIN O AB <20.0 IU/mL (0.0-200.0)
[2023-03-07 20:07] LABS: IMMUNOGLOBULIN A (IGA) 113 mg/dL (64-422); IMMUNOGLOBULIN G (IGG) 816 mg/dL (586-1602)
[2023-03-07 21:07] LABS: CYCLIC CITRULLINATED PEP IGG/A 2 units (0-19)
[2023-03-08 16:08] LABS: ANTINUCLEAR ANTIBODIES IFA Negative (.)
== END 2023-03-06 07:17 | disposition home or self-care (01) ==
LOC: LAB 07:16
PROVIDERS: ATTEND Physician Assistant Medical
DX: L40.0 Psoriasis vulgaris (principal)
CPT/HCPCS: 36415; 81374; 81599; 82784; 85025; 85651; 86038; 86060; 86140; 86200

== ENCOUNTER 2023-08-04 18:09 | Emergency (ER) | payer MEDICARE, OTHER ==
[2023-08-04 18:22] VITALS: BP 168/90; O2SAT 97
--- NOTE | 2023-08-04 18:44 | ED Physician Documentation ---
PD HPI SKIN - Stated complaint Stated Complaint: CAT SCRATCH - Chief complaint Chief Complaint: Wound - Additional information Additional information: 82-year-old female with history of hypertension, bilateral lower extremity edema, paroxysmal SVT presents emergency department for right lower extremity infection caused by cat scratch.Patient says that she was getting on the shower she spoke to one of her kids that she just rescued and accidentally scratched her right singh area. This happened on07/30/2023, she has been attempting to clean the wound clean and dry but she has been noticing increased erythema pain and inflammation she is noticing pain with ambulation to the side of her left lower extremity. Cat scratch is about 2 inches superior to the left lateral malleolus. She denies any fevers or chills. PD PAST MEDICAL HISTORY - Past Medical History Cardiovascular: Deep vein thrombosis, Arrhythmia Respiratory: None Neuro: None Endocrine/Autoimmune: HyPOthyroidism GI: GERD, Hiatal hernia, Colon polyps, Other MANAGER PRODUCT MANAGEMENT: None : Incontinence, Frequency HEENT: Glaucoma, Chronic sinusitis, Other Psych: Anxiety, Claustrophobia Musculoskeletal: Osteoarthritis Derm: Eczema, Psoriasis, Rosacea - Past Surgical History Past Surgical History: Yes General: Colonoscopy Ortho: Hip replacement, Knee replacement, Carpal Tunnel surgery /MANAGER PRODUCT MANAGEMENT: Dilation and currettage, Hysterectomy, Oophrectomy, LEEP (Cervical surgery), Other Cardiovascular: Other HEENT: Cataracts, Tonsil/Adenoidectomy - Present Medications Home Medications: Ambulatory Orders Medication Instructions Recorded Confirmed Levothyroxine [Synthroid] 50 mcg PO UD 01/30/13 02/11/23 Verapamil [Calan] 120 mg PO BID 04/28/20 02/11/23 Metoprolol Tartrate [Lopressor] 50 mg PO BID 01/12/21 02/11/23 Famotidine [Pepcid] 20 mg PO BID 07/27/21 02/11/23 Magnesium Oxide 400 mg PO DAILY 07/27/21 02/11/23 Anastrozole 1 mg PO DAILY 09/05/21 02/11/23 Amox/Clav 875/125 [Augmentin 1 tablet PO Q12H 10 Days #20 tablet 08/04/23 875/125 Tab] - Allergies Allergies/Adverse Reactions: Allergies Allergy/AdvReac Type Severity Reaction Status Date / Time Tetracyclines Allergy Severe TINNITIS/PH Verified 03/17/24 18:15 OTOPHOBIA/M IGRAINES adhesive tape AdvReac Rash Verified 08/04/23 18:15 - Social History Does the pt smoke?: No Smoking Status: Never smoker Does the pt drink ETOH?: Yes Does the pt have substance abuse?: No - Immunizations Immunizations are current?: Yes - POLST Patient has POLST: No PD ED PE NORMAL - Vitals Vital signs reviewed: Yes - General General: Alert and oriented X 3, No acute distress, Well developed/nourished - HEENT HEENT: Atraumatic - Psych Psych: Normal mood, Normal affect - Free text exam Free text exam: Left lower extremity: No pitting edema, there is inflammation and swelling to the left lower extremity about 2 inches superior to the level lateral malleolus, obvious cat scratch with mild purulent drainage about 2 cm long. There is no induration surrounding the cat scratch, there is significant erythema spreading about 5 to 6 m out from the cat scratch itself. Results - Vitals Vitals: Vital Signs - 24 hr 08/04/23 08/04/23 18:12 20:26 Temperature 36.2 C L 36.2 C L Heart Rate 101 H 101 H Respiratory 18 18 Rate Blood Pressure 168/90 H 168/90 H O2 Saturation 97 97 Oxygen O2 Source Room air PD Medical Decision Making - ED course ED course: 82-year-old female presents emergency department for infected cat scratch. She was given a one-time dose of IV Rocephin here in the emergency department and prescription of Augmentin was sent to her preferred pharmacy. She was given very strict return precautions and told that if she is not feeling better or if she is getting worse in any way shape or form to present back to emergency department for IV antibiotics. Patient is reliable and understands return precautions. Prescription sent to her preferred pharmacy. She was able to tolerate IV Rocephin without any difficulty. All questions answered patient told to follow-up with primary care provider safer discharge. Departure - Departure Disposition: 01 Home, Self Care Clinical Impression: Cat scratch of right lower leg Qualifiers: Encounter type: initial encounter Qualified Code(s): S80.811A - Abrasion, right lower leg, initial encounter Instructions: Bites Scratches Animal, Cat Scratch Disease Prescriptions: Amox/Clav 875/125 [Augmentin 875/125 Tab] 1 tablet PO Q12H 10 Days #20 tablet Comments: Thank you for trusting us with your care. We have given you a dose of Rocephin here in the ER and I am sending a prescription of Augmentin to [facility]. If after 48 hours with no missed antibiotics and you see no improvement in your symptoms or if it is getting any worse, please come back to the ER. If you are starting to notice au Forms: PCP List Discharge Date/Time: 08/04/23 20:27
[2023-08-04] MEDS ORDERED: cefTRIAXone 1 GM VIAL ONE (19:35)
[2023-08-04] MEDS: cefTRIAXone 1 GM in SODIUM CHLORIDE 0.9% MINIBAG 100 ML IV STA (19:42)
== END 2023-08-04 20:27 | disposition home or self-care (01) ==
LOC: ED 18:09
DX: S80.811A Abrasion, right lower leg, initial encounter (principal); W55.03XA Scratched by cat, initial encounter; I10 Essential (primary) hypertension
CPT/HCPCS: 96365; 99283

== ENCOUNTER 2023-08-08 14:18 | Emergency (ER) | payer MEDICARE, OTHER ==
--- NOTE | 2023-08-08 15:09 | ED Physician Documentation ---
PD HPI LOWER EXT INJURY - Stated complaint Stated Complaint: RT LEG CAT SCRATCH,RED,PX - Chief complaint Chief Complaint: Ext Problem - History obtained from History obtained from: Patient - Additional information Additional information: Allen ALAS 07/29 Started infection, seen here 08/03- unasyn-augmentin now worse with high nl temp. PD PAST MEDICAL HISTORY - Past Medical History Cardiovascular: Deep vein thrombosis, Arrhythmia Respiratory: None Neuro: None Endocrine/Autoimmune: HyPOthyroidism GI: GERD, Hiatal hernia, Colon polyps, Other FRONT DESK COORDINATOR: None : Incontinence, Frequency HEENT: Glaucoma, Chronic sinusitis, Other Psych: Anxiety, Claustrophobia Musculoskeletal: Osteoarthritis Derm: Eczema, Psoriasis, Rosacea - Past Surgical History Past Surgical History: Yes General: Colonoscopy Ortho: Hip replacement, Knee replacement, Carpal Tunnel surgery /FRONT DESK COORDINATOR: Dilation and currettage, Hysterectomy, Oophrectomy, LEEP (Cervical surgery), Other Cardiovascular: Other HEENT: Cataracts, Tonsil/Adenoidectomy - Present Medications Home Medications: Ambulatory Orders Medication Instructions Recorded Confirmed Levothyroxine [Synthroid] 50 mcg PO UD 01/30/13 08/08/23 Verapamil [Calan] 120 mg PO BID 04/28/20 08/08/23 Metoprolol Tartrate [Lopressor] 50 mg PO BID 01/12/21 08/08/23 Famotidine [Pepcid] 20 mg PO BID 07/27/21 08/08/23 Magnesium Oxide 400 mg PO DAILY 07/27/21 08/08/23 Anastrozole 1 mg PO DAILY 09/05/21 08/08/23 Amox/Clav 875/125 [Augmentin 1 tablet PO Q12H 10 Days #20 tablet 08/04/23 08/08/23 875/125 Tab] Saccharomyces Boulardii [Florastor] 500 mg PO BIDWM #30 cap 08/08/23 Sulfamethox/Trimeth 800/160 1 each PO BID #14 tablet 08/08/23 [Bactrim Ds 800/160] - Allergies Allergies/Adverse Reactions: Allergies Allergy/AdvReac Type Severity Reaction Status Date / Time Tetracyclines Allergy Severe TINNITIS/PH Verified 08/08/23 15:20 OTOPHOBIA/M IGRAINES adhesive tape AdvReac Rash Verified 08/08/23 15:20 - Social History Does the pt smoke?: No Smoking Status: Never smoker Does the pt drink ETOH?: Yes Does the pt have substance abuse?: No - Immunizations Immunizations are current?: Yes - POLST Patient has POLST: No PD ED PE NORMAL - Vitals Vital signs reviewed: Yes - General General: Alert and oriented X 3, No acute distress - Derm Derm: Other (3cm infected scratch above r ankle with cellulitis and small purulent drainage sent for cx.) Results - Vitals Vitals: Vital Signs - 24 hr 08/08/23 14:33 Temperature 37.3 C Heart Rate 90 Respiratory 16 Rate Blood Pressure 162/92 H O2 Saturation 96 Oxygen O2 Source Room air - Labs Labs: Laboratory Tests 08/08/23 08/08/23 15:25 15:25 WBC 5.8 RBC 4.23 Hgb 14.2 Hct 42.5 MCV 100.5 H MCH 33.6 H MCHC 33.4 RDW 13.4 Plt Count 249 MPV 8.7 Neut # (Auto) 4.2 Lymph # (Auto) 0.9 L [place] # (Auto) 0.5 Eos # (Auto) 0.2 Baso # (Auto) 0.0 Absolute Nucleated RBC 0.00 Nucleated RBC % 0.0 Sodium 135 Potassium 3.8 Chloride 103 Carbon Dioxide 26 Anion Gap 6.0 BUN 12 Creatinine 0.9 Estimated GFR (MDRD) 60 L Glucose 110 H Calcium 9.7 PD Medical Decision Making - ED course ED course: She has an infected cat scratch, it is a little worse on oral antibiotics. It was debrided here by me and a culture was sent. She was given a dose of Unasyn. We check some basic labs and her white count was normal with unremarkable chemistries. Will add Bactrim pending culture results. Departure - Departure Disposition: 01 Home, Self Care Clinical Impression: Infection of cat scratch wound Condition: Good Record reviewed to determine appropriate education?: Yes Instructions: ED Bite Cat Prescriptions: Sulfamethox/Trimeth 800/160 [Bactrim Ds 800/160] 1 each PO BID #14 tablet Saccharomyces Boulardii [Florastor] 500 mg PO BIDWM #30 cap Comments: At this point your white count is on the low end of normal so that would suggest that the infection has not gone systemic. I am going to add a second antibiotic. You should still take the Augmentin with this. I sent your prescription electronically to the [facility] pharmacy at the corner of [address] here in [place]. You can be a little more aggressive about wound cleansing, scrubbing it a bit to get any tissue off and then using the chlorhexidine containing Hibiclens s oap as well. We are performing a wound culture, the results should be done in 48-72 hours. If antibiotic change is necessary we will call you. Return if worse in the meantime, especially if you develop increased pain, fevers, cannot keep down the medication. Would be reasonable to have a wound check with your physician in 2 days. Since today is you can return here there are any concerns. Forms: PCP List
[2023-08-08 15:33] LABS: BASOPHILS % (AUTO) 0.2 %; EOSINOPHILS # (AUTO) 0.2 10^3/uL (0.0-0.7); EOSINOPHILS % (AUTO) 3.1 %; HCT - HEMATOCRIT 42.5 % (37.0-47.0); HGB - HEMOGLOBIN 14.2 g/dL (12.0-16.0); LYMPHOCYTES # (AUTO) 0.9 10^3/uL (1.5-3.5); LYMPHOCYTES % (AUTO) 15.9 %; MEAN CORPUSCULAR HEMOGLOBIN 33.6 pg (27.0-31.0); MEAN CORPUSCULAR HGB CONC 33.4 g/dL (32.0-36.0); MEAN CORPUSCULAR VOLUME 100.5 fL (81.0-99.0); MEAN PLATELET VOLUME 8.7 fL (7.9-10.8); MONOCYTES # (AUTO) 0.5 10^3/uL (0.0-1.0); MONOCYTES % (AUTO) 8.3 %; NEUTROPHILS # (AUTO) 4.2 10^3/uL (1.5-6.6); NEUTROPHILS % (AUTO) 72.2 %; PLT - PLATELET COUNT 249 10^3/uL (130-450); RED BLOOD COUNT 4.23 10^6/uL (4.20-5.40); RED CELL DISTRIBUTION WIDTH 13.4 % (12.0-15.0); WHITE BLOOD COUNT 5.8 x10^3/uL (4.8-10.8)
[2023-08-08] MEDS: AMPICILLIN/SULBACTAM 3 GM in SODIUM CHLORIDE 0.9% MINIBAG 100 ML IV STA (15:40)
[2023-08-08 15:45] LABS: CALCIUM 9.7 mg/dL (8.5-10.3); CREATININE 0.9 mg/dL (0.6-1.3); POTASSIUM 3.8 mmol/L (3.5-4.5)
[2023-08-08] MEDS: SULFAMETH/TRIMETH DS 800/160 MG TABLET PO STA (16:09)
[2023-08-08 16:26] VITALS: BP 144/86; O2SAT 97
== END 2023-08-08 16:27 | disposition home or self-care (01) ==
LOC: ED 14:18
DX: S80.811A Abrasion, right lower leg, initial encounter (principal); L08.9 Local infection of the skin and subcutaneous tissue, unspecified; W55.03XA Scratched by cat, initial encounter; E03.9 Hypothyroidism, unspecified; Z79.899 Other long term (current) drug therapy
CPT/HCPCS: 36415; 80048; 85025; 87070; 87077; 87181; 87205; 96374; 99284; A9270